=== PATIENT | female | born 1960 | race African-American/Black ===

== ENCOUNTER 2016-07-04 07:29 | Outpatient (CLI) ==
[2016-07-04 07:55] LABS: BASOPHILS # (AUTO) 0.1 K/uL (0-0.2); BASOPHILS % (AUTO) 0.7 % (0.0-3.0); EOSINOPHILS # (AUTO) 0.5 K/ul (0.0-0.7); EOSINOPHILS % (AUTO) 5.8 % (0.0-7.0); HEMATOCRIT 36.7 % (37.0-47.0); HEMOGLOBIN 12.2 g/dl (12.0-16.0); LYMPHOCYTES # (AUTO) 3.3 K/uL (0.60-3.4); LYMPHOCYTES % (AUTO) 34.6 (10.0-50.0); MEAN CORPUSCULAR HEMOGLOBIN 26.2 pg (27.0-31.0); MEAN CORPUSCULAR HGB CONC 33.2 (31.8-35.4); MEAN CORPUSCULAR VOLUME 78.9 fl (81.0-99.0); MONOCYTES # (AUTO) 0.7 K/uL (0.4-2.0); MONOCYTES % (AUTO) 7.8 (0-10); NEUTROPHILS # (AUTO) 4.7 K/ul (2.0-6.9); NEUTROPHILS % (AUTO) 50.1; PLATELET COUNT 361 10^3/uL (140-440); RED BLOOD COUNT 4.65 10^6/ul (4.20-5.40); WHITE BLOOD COUNT 9.38 K/ul (4.6-10.2)
[2016-07-04 08:12] LABS: ALBUMIN 3.7 g/dL (3.4-5.0); ALBUMIN/GLOBULIN RATIO 0.97; ANION GAP 11.9; BILIRUBIN,TOTAL 0.32 mg/dL (0.00-1.20); BUN/CREATININE RATIO 10.97; CALCIUM 9.3 mg/dL (8.2-10.2); CHOL/HDL RATIO 4.9 (4.5-5.5); CREATININE 0.82 mg/dL (0.60-1.30); POTASSIUM 3.9 mmol/L (3.5-5.10); TOTAL PROTEIN 7.5 g/dL (6.4-8.2)
[2016-07-04 10:08] LABS: BILIRUBIN,URINE Negative (NEGATIVE); KETONES,URINE Negative (NEGATIVE); LEUKOCYTE ESTERASE ,URINE Negative (NEGATIVE); NITRITE,URINE Negative (NEGATIVE); PH,URINE 7.5 (5-9); PROTEIN,URINE Negative (NEGATIVE); URINE, BLOOD Negative (NEGATIVE)
[2016-07-04 10:12] LABS: ADD URINE MICROSCOPIC NO
== END 2016-07-04 07:30 | disposition home or self-care (01) ==
LOC: LAB 07:29
PROVIDERS: ATTEND Nurse Practitioner Family
DX: E78.5 Hyperlipidemia, unspecified (principal)
CPT/HCPCS: 36415; 80053; 80061; 81001; 85025

== ENCOUNTER 2016-07-17 10:58 | Outpatient (CLI) ==
--- NOTE | 2016-07-17 11:54 | US ---
EXAM: Thyroid ultrasound History: Enlarged thyroid, difficulty swallowing. Technique: Multiple sonographic images through the thyroid gland were obtained. Color duplex Dopple r was used to interrogate vascular flow. Findings: The right lobe of the thyroid measures 4.0 cm x 1.9 cm x 1.1 cm and is without discrete nodule ident ified. The thyroid isthmus measures 0.3 cm in thickness. The left lobe of the thyroid measures 3.8 cm x 1.2 cm x 1.4 cm and is without discrete nodule identi fied. No extrathyroidal masses identified. The thyroid gland is not hypervascular. Impression: Normal thyroid ultrasound.
== END 2016-07-17 10:59 | disposition home or self-care (01) ==
LOC: RAD 10:58
PROVIDERS: ATTEND Nurse Practitioner Family
DX: E01.0 Iodine-deficiency related diffuse (endemic) goiter (principal)

== ENCOUNTER 2016-07-24 11:43 | Outpatient (CLI) ==
--- NOTE | 2016-07-26 11:41 | MAMMO ---
EXAM: Bilateral digital screening mammogram History: Screening Comparison: Bilateral mammogram 03/22/2015 Findings: MLO and CC views of bilateral breasts demonstrate scattered fibroglandular breast parench yma. There are no dominant masses, no suspicious microcalcifications and no architectural distortio ns Impression: Stable negative mammogram. Recommend followup routine screening mammography in 1 year. BIRADS 1
== END 2016-07-24 11:44 | disposition home or self-care (01) ==
LOC: RAD 11:43
PROVIDERS: ATTEND Nurse Practitioner Family
DX: Z12.31 Encounter for screening mammogram for malignant neoplasm of breast (principal)

== ENCOUNTER 2017-02-25 07:26 | Outpatient (CLI) ==
[2017-02-25 07:38] LABS: BASOPHILS % (AUTO) 0.4 % (0.0-3.0); EOSINOPHILS # (AUTO) 0.3 K/ul (0.0-0.7); EOSINOPHILS % (AUTO) 3.6 % (0.0-7.0); HEMATOCRIT 37.6 % (37.0-47.0); HEMOGLOBIN 12.5 g/dl (12.0-16.0); IMMATURE GRANULOCYTE % (AUTO) 1.1 % (0.0-5.0); LYMPHOCYTES # (AUTO) 2.6 K/uL (0.60-3.4); LYMPHOCYTES % (AUTO) 35.9 (10.0-50.0); MEAN CORPUSCULAR HEMOGLOBIN 26.2 pg (27.0-31.0); MEAN CORPUSCULAR HGB CONC 33.2 (31.8-35.4); MEAN CORPUSCULAR VOLUME 78.8 fl (81.0-99.0); MONOCYTES # (AUTO) 0.7 K/uL (0.4-2.0); MONOCYTES % (AUTO) 9.7 (0-10); NEUTROPHILS # (AUTO) 3.6 K/ul (2.0-6.9); NEUTROPHILS % (AUTO) 49.3; PLATELET COUNT 375 10^3/uL (140-440); RED BLOOD COUNT 4.77 10^6/ul (4.20-5.40); WHITE BLOOD COUNT 7.21 K/ul (4.6-10.2)
[2017-02-25 08:23] LABS: ALBUMIN 3.6 g/dL (3.4-5.0); ALBUMIN/GLOBULIN RATIO 0.95; ANION GAP 15.3; BILIRUBIN,TOTAL 0.28 mg/dL (0.00-1.20); BUN/CREATININE RATIO 13.82; CALCIUM 9.8 mg/dL (8.2-10.2); CREATININE 0.94 mg/dL (0.60-1.30); POTASSIUM 3.3 mmol/L (3.5-5.10); TOTAL PROTEIN 7.4 g/dL (6.4-8.2)
== END 2017-02-25 07:27 | disposition home or self-care (01) ==
LOC: LAB 07:26
PROVIDERS: ATTEND Nurse Practitioner Family
DX: E78.5 Hyperlipidemia, unspecified (principal)
CPT/HCPCS: 36415; 80053; 80061; 84439; 84443; 85025

== ENCOUNTER 2017-02-26 16:10 | Outpatient (CLI) | END 2017-02-26 16:11 | disposition home or self-care (01) | LOC: LAB 16:10 | PROVIDERS: ATTEND Nurse Practitioner Family | DX: R73.09 Other abnormal glucose (principal) | CPT/HCPCS: 36415; 83036 ==

== ENCOUNTER 2017-03-04 15:44 | Inpatient (IN) ==
[2017-03-04] MEDS ORDERED: NORVASC PO STA (16:20)
[2017-03-04 16:41] LABS: BASOPHILS # (AUTO) 0.1 K/uL (0-0.2); BASOPHILS % (AUTO) 0.6 % (0.0-3.0); EOSINOPHILS # (AUTO) 0.2 K/ul (0.0-0.7); EOSINOPHILS % (AUTO) 2.4 % (0.0-7.0); HEMATOCRIT 35.1 % (37.0-47.0); HEMOGLOBIN 11.9 g/dl (12.0-16.0); IMMATURE GRANULOCYTE % (AUTO) 0.9 % (0.0-5.0); LYMPHOCYTES # (AUTO) 2.8 K/uL (0.60-3.4); LYMPHOCYTES % (AUTO) 34.2 (10.0-50.0); MEAN CORPUSCULAR HEMOGLOBIN 26.4 pg (27.0-31.0); MEAN CORPUSCULAR HGB CONC 33.9 (31.8-35.4); MEAN CORPUSCULAR VOLUME 77.8 fl (81.0-99.0); MONOCYTES # (AUTO) 0.6 K/uL (0.4-2.0); MONOCYTES % (AUTO) 7.1 (0-10); NEUTROPHILS # (AUTO) 4.5 K/ul (2.0-6.9); NEUTROPHILS % (AUTO) 54.8; PLATELET COUNT 341 10^3/uL (140-440); RED BLOOD COUNT 4.51 10^6/ul (4.20-5.40); WHITE BLOOD COUNT 8.18 K/ul (4.6-10.2)
[2017-03-04 17:34] LABS: ALANINE AMINOTRANSFERASE 17 U/L (12-78); ALBUMIN 3.8 g/dL (3.4-5.0); ALKALINE PHOSPHATASE 57 U/L (42-98); ANION GAP 10.9; ASPARTATE AMINO TRANSFERASE 23 U/L (15-37); BILIRUBIN,TOTAL 0.37 mg/dL (0.00-1.20); BLOOD UREA NITROGEN 12 mg/dL (7-18); BUN/CREATININE RATIO 15.58; CALCIUM 9.7 mg/dL (8.2-10.2); CARBON DIOXIDE 30 mmol/L (21-32); CHLORIDE 99 mmol/L (98-107); CREATINE KINASE 223 U/L; CREATININE 0.77 mg/dL (0.60-1.30); GLUCOSE 89 mg/dL (70-110); POTASSIUM 2.9 mmol/L (3.5-5.10); SODIUM 137 mmol/L (136-145); TOTAL PROTEIN 7.6 g/dL (6.4-8.2)
[2017-03-04 17:36] LABS: CREATINE KINASE MB 5.8 ng/ml (0.0-3.6)
[2017-03-04] MEDS ORDERED: PROAIR HFA IH PRN (17:48)
[2017-03-04] MEDS ORDERED: POTASSIUM CHLORIDE PREMIX RUN 10 MEQ in PREMIX 100 ML WATER 1 BAG IV STA (17:48)
--- NOTE | 2017-03-04 17:54 | ED.PDOC ---
General ED Provider: Dr. RUBY WILLARD Chief Complaint: Hypertension Stated Complaint: hypertension Time Seen by Physician: 15:45 Mode of Arrival: Walk-In Information Source: Patient Exam Limitations: No limitations [facility] and Triage Documentation Reviewed and Agree: Yes Cardiovascular Complaint Exam - Hypertension Complaint/Exam Onset/Duration: today Symptoms Are: Still present Reported B/P Prior to Arrival: 200/100 Aggravating: Reports: Exertion Alleviating: Reports: Rest Associated Signs and Symptoms: Denies: Chest pain, Vision changes, Anxiety, Recent stress, Headache, Numbness, Tingling, Weakness, Dizziness, Short of air, Swelling Related History: Reports: Similar episode Related Surgical History: Reports: None Cardiac Risk Factors: Reports: Hypertension, Diabetes Recent Change in Medications: Yes A/V Nicking: No Papilledema Present: No JVD Present: No Carotid Bruit Present: No Differential Diagnoses: Hypertensive Urgency Quality Indicator For Non-Traumatic Chest Pain/Syncope: EKG Performed Review of Systems - Review Of Systems Constitutional: Reports: No symptoms Eyes: Reports: No symptoms Ears, Nose, Mouth, Throat: Reports: No symptoms Respiratory: Reports: No symptoms Cardiac: Reports: Chest pain GI: Reports: No symptoms : Reports: No symptoms Musculoskeletal: Reports: No symptoms Skin: Reports: No symptoms Neurological: Reports: No symptoms Endocrine: Reports: No symptoms Hematologic/Lymphatic: Reports: No symptoms All Other Systems: Reviewed and Negative Past Medical History - Past Medical History Previously Healthy: Yes Endocrine: Reports: DM 2 Cardiovascular: Reports: Hypertension Respiratory: Reports: None Hematological: Reports: None Gastrointestinal: Reports: None Genitourinary: Reports: None Neuro/Psych: Reports: None Musculoskeletal: Reports: None Cancer: Reports: None Last Menstrual Period: NONE - Surgical History General Surgical History: Reports: None - Family History Family History: Reports: None - Social History Smoking Status: Never smoker Hx Substance Use: No Alcohol Screening: Occasionally Physical Exam - Physical Exam Appearance: Well-appearing, No pain distress, Well-nourished Eyes: VEENA, EOMI, Conjunctiva clear ENT: Ears normal, Nose normal, Oropharynx normal Respiratory: Airway patent, Breath sounds clear, Breath sounds equal, Respirations nonlabored Cardiovascular: RRR, Pulses normal, No rub, No murmur GI/: Soft, Nontender, No masses, Bowel sounds normal, No Organomegaly Musculoskeletal: Normal strength, ROM intact, No edema, No calf tenderness Skin: Warm, Dry, Normal color Neurological: Sensation intact, Motor intact, Reflexes intact, Cranial nerves intact, Alert, Oriented Psychiatric: Affect appropriate, Mood appropriate Critical Care Note - Critical Care Note Total Time (mins): 0 Course - Course Hematology/Chemistry: 03/04/17 16:38 03/04/17 16:38 Orders, Labs, Meds: Lab Review 03/04/17 03/04/17 16:38 16:38 WBC 8.18 RBC 4.51 Hgb 11.9 L Hct 35.1 L MCV 77.8 L MCH 26.4 L MCHC 33.9 RDW Coeff of Anh 13.4 Plt Count 341 Immature Gran % (Auto) 0.9 Neut % (Auto) 54.8 Lymph % (Auto) 34.2 Vilas % (Auto) 7.1 Eos % (Auto) 2.4 Baso % (Auto) 0.6 Immature Gran # (Auto) 0.1 Neut # 4.5 Lymph # 2.8 Vilas # 0.6 Eos # 0.2 Baso # 0.1 Sodium 137 Potassium 2.9 L Chloride 99 Carbon Dioxide 30 Anion Gap 10.9 BUN 12 Creatinine 0.77 Estimated GFR (MDRD) 94.00 BUN/Creatinine Ratio 15.58 Glucose 89 Calcium 9.7 Total Bilirubin 0.37 AST 23 ALT 17 Alkaline Phosphatase 57 Total Creatine Kinase 223 CK-MB (CK-2) 5.8 H* CK-MB (CK-2) % 2.44605 Troponin I < 0.0100 Total Protein 7.6 Albumin 3.8 Globulin 3.8 Albumin/Globulin Ratio 1.00 Orders Category Date Time Status ADMIT PATIENT INPATIENT .TO [facility] (MONITORED BED) ADMISSION 03/04/17 17: 46 Ordered EKG-(ED ONLY) Stat CARDIO 03/04/17 16:20 Completed EKG-(IP & OP ONLY) DAILY CARDIO 03/05/17 06:00 Ordered EKG-(IP & OP ONLY) DAILY CARDIO 03/06/17 06:00 Ordered EKG-(IP & OP ONLY) DAILY CARDIO 03/07/17 06:00 Ordered ACTIVITY .BR with BRP CARE 03/04/17 17:46 Ordered BLOOD GLUCOSE MONITORING ACCUCHECK Q6H CARE 03/04/17 17:51 Ordered GIVE HS SNACK 2100 CARE 03/04/17 17:51 Ordered INTAKE & OUTPUT Q8HR CARE 03/04/17 17:51 Ordered TELEMETRY MONITORING TELE CARE 03/04/17 17:47 Ordered VITAL SIGNS Q4HR CARE 03/04/17 17:46 Ordered ADA 1800 KAUSHIK. DIET DIETARY 03/04/17 Dinner Ordered HS SNACK DIETARY 03/04/17 Dinner Ordered CBC W/ AUTO DIFF DAILY@0600 LAB 03/05/17 06:00 Ordered CBC W/ AUTO DIFF DAILY@0600 LAB 03/06/17 06:00 Ordered CBC W/ AUTO DIFF Stat LAB 03/04/17 16:38 Completed COMPREHENSIVE METABOLIC PANEL DAILY@0600 LAB 03/05/17 06:00 Ordered COMPREHENSIVE METABOLIC PANEL DAILY@0600 LAB 03/06/17 06:00 Ordered COMPREHENSIVE METABOLIC PANEL Stat LAB 03/04/17 16:38 Completed CREATINE KINASE Q8H LAB 03/04/17 23:47 Ordered CREATINE KINASE Q8H LAB 03/05/17 07:47 Ordered CREATINE KINASE Stat LAB 03/04/17 16:38 Completed TROPONIN I Q8H LAB 03/04/17 23:47 Ordered TROPONIN I Q8H LAB 03/05/17 07:47 Ordered TROPONIN I Stat LAB 03/04/17 16:38 Completed Albuterol Sulfate 0.083% Neb [Albuterol 0.083% Neb] MEDS 03/04/17 18:00 Ordered 2.5 mg NEB Q4-6H Albuterol Sulfate [Proair Hfa] MEDS 03/04/17 17:48 Ordered 1 - 2 puff IH Q4-6H PRN Amlodipine Besylate [Norvasc] MEDS 03/04/17 16:20 Discontinued 5 mg PO ONCE STA Bisoprolol Fumarate [Zebeta] MEDS 03/05/17 09:00 Ordered 5 mg PO DAILY Losartan/Hydrochlorothiazide [Hyzaar 50-12.5 mg Tab] MEDS 03/05/17 09:00 Ordered 1 each PO DAILY Metformin HCl [Glucophage] MEDS 03/04/17 21:00 Ordered 500 mg PO BID Montelukast Sodium [Singulair] MEDS 03/05/17 09:00 Ordered 10 mg PO DAILY Potassium Chloride [Potassium Chloride Premix Run] 10 MEDS 03/04/17 17:48 Ordered meq Premix 100 ml Water 1 bag IV ONCE Potassium Chloride [Potassium Chloride] MEDS 03/04/17 21:00 Ordered 20 meq PO BID Potassium Chloride in 0.9%NaCl [Sodium Chloride 0.9%- MEDS 03/04/17 18:00 Ordered KCl 20 Meq] 1,000 ml IV 75 mls/hr Sodium Chloride 0.9% [Sodium Chloride] 1,000 ml MEDS 03/04/17 18:00 Ordered IV 75 mls/hr Medications Generic Name Dose Route Start Last Admin Trade Name Olvin PRN Reason Stop Dose Admin Albuterol Sulfate vial 03/04/17 18:00 Albuterol 0.083% Neb NEB Q4-6H JAROD Albuterol Sulfate 1 - 2 puff 03/04/17 17:48 Proair Hfa IH Q4-6H PRN Bronchospasm Bisoprolol Fumarate 5 mg 03/05/17 09:00 Zebeta PO DAILY JAROD HCTZ/Losartan Potassium tab 03/05/17 09:00 Hyzaar 50-12.5 Mg Tab PO DAILY JRAOD Sodium Chloride 1,000 mls @ 75 mls/hr 03/04/17 18:00 Sodium Chloride IV .[id number] JAROD Potassium Chloride/Sodium Chloride 1,000 mls @ 75 mls/hr 03/04/17 18:00 Sodium Chloride 0.9%-Kcl 20 Meq IV .[id number] JAROD Potassium Chloride 10 meq/ 100 mls @ 100 mls/hr 03/04/17 17:48 Sterile Water IV 03/04/17 18:47 ONCE STA Metformin HCl 500 mg 03/04/17 21:00 Glucophage PO BID JAROD Montelukast Sodium 10 mg 03/05/17 09:00 Singulair PO DAILY JAROD Non-Formulary Medication 20 meq 03/04/17 21:00 Potassium Chloride [Potassium Chloride] PO BID JAROD Discontinued Medications Generic Name Dose Route Start Last Admin Trade Name Pepeq PRN Reason Stop Dose Admin Amlodipine Besylate 5 mg 03/04/17 16:20 03/04/17 16:29 Norvasc PO 03/04/17 16:21 5 mg ONCE STA Administration Vital Signs: Temp Pulse Resp BP Pulse Ox 03/04/17 15:44 97.8 F 90 18 201/102 H 98 WALE Risk Score WALE Risk Score: Risk Score Odds of by 30D 0 0.1 (0.1-0.2) 1 0.3 (0.2-0.3) 2 0.4 (0.3-0.5) 3 0.7 (0.6-0.9) 4 1.2 (1.0-1.5) 5 2.2 (1.9-2.6) 6 3.0 (2.5-3.6) 7 4.8 (3.8-6.1) Departure - Departure Time of Disposition: 17:53 Disposition: ADMITTED INPATIENT Discharge Problem: Hypokalemia Instructions: Hypertension (ED) Condition: Good Pt referred to PMD for follow-up: Yes Allergies/Adverse Reactions: Allergies No Known Allergies Allergy (Verified 03/04/17 15:51)
[2017-03-04] MEDS ORDERED: SODIUM CHLORIDE 1,000 ML IV SCH (18:00)
[2017-03-04] MEDS ORDERED: ALBUTEROL 0.083% NEB NEB SCH (18:00)
[2017-03-04] MEDS ORDERED: POTASSIUM CHLORIDE PREMIX RUN 100 ML IV ONE (18:23)
[2017-03-04] MEDS: SODIUM CHLORIDE 0.9%-KCL 20 MEQ 1,000 ML IV SCH (18:32)
[2017-03-04] MEDS ORDERED: K-DUR ONE (19:45)
[2017-03-04] MEDS: GLUCOPHAGE PO SCH (20:33)
[2017-03-04] MEDS ORDERED: NON-FORMULARY MEDICATION (Potassium Chloride [Potassium Chloride] 20 MEQ) PO SCH ×22 (21:00)
[2017-03-04 21:09] VITALS: BMI 34.3
[2017-03-04 23:05] LABS: BUN/CREATININE RATIO 12.79; CALCIUM 9.6 mg/dL (8.2-10.2); CREATININE 0.86 mg/dL (0.60-1.30)
[2017-03-04 23:23] LABS: TROPONIN I 0.01 ng/ml (0.0000-0.4000)
[2017-03-04 23:24] LABS: CREATINE KINASE MB 4.6 ng/ml (0.0-3.6)
[2017-03-05] MEDS: SODIUM CHLORIDE 0.9%-KCL 20 MEQ 1,000 ML IV SCH ×2 (07:50→20:08)
[2017-03-05 07:57] LABS: BASOPHILS % (AUTO) 0.6 % (0.0-3.0); EOSINOPHILS # (AUTO) 0.2 K/ul (0.0-0.7); EOSINOPHILS % (AUTO) 3.2 % (0.0-7.0); HEMATOCRIT 33.4 % (37.0-47.0); HEMOGLOBIN 11.4 g/dl (12.0-16.0); IMMATURE GRANULOCYTE % (AUTO) 1.2 % (0.0-5.0); LYMPHOCYTES # (AUTO) 2.1 K/uL (0.60-3.4); LYMPHOCYTES % (AUTO) 31.5 (10.0-50.0); MEAN CORPUSCULAR HEMOGLOBIN 26.9 pg (27.0-31.0); MEAN CORPUSCULAR HGB CONC 34.1 (31.8-35.4); MEAN CORPUSCULAR VOLUME 78.8 fl (81.0-99.0); MONOCYTES # (AUTO) 0.6 K/uL (0.4-2.0); MONOCYTES % (AUTO) 8.2 (0-10); NEUTROPHILS # (AUTO) 3.8 K/ul (2.0-6.9); NEUTROPHILS % (AUTO) 55.3; PLATELET COUNT 343 10^3/uL (140-440); RED BLOOD COUNT 4.24 10^6/ul (4.20-5.40)
[2017-03-05 08:16] LABS: ALBUMIN 3.4 g/dL (3.4-5.0); ANION GAP 11.1; BILIRUBIN,TOTAL 0.21 mg/dL (0.00-1.20); BUN/CREATININE RATIO 14.47; CALCIUM 9.3 mg/dL (8.2-10.2); CREATININE 0.76 mg/dL (0.60-1.30); POTASSIUM 3.1 mmol/L (3.5-5.10); TOTAL PROTEIN 6.8 g/dL (6.4-8.2)
[2017-03-05 08:31] LABS: TROPONIN I 0.014 ng/ml (0.0000-0.4000)
[2017-03-05 08:34] LABS: CREATINE KINASE MB 3.4 ng/ml (0.0-3.6)
[2017-03-05] MEDS ORDERED: HYZAAR 50-12.5 MG TAB PO SCH (09:00)
[2017-03-05] MEDS: ZEBETA PO SCH (09:07)
[2017-03-05] MEDS: K-DUR PO SCH ×2 (09:07→16:55)
[2017-03-05] MEDS: GLUCOPHAGE PO SCH ×2 (09:08→20:08)
[2017-03-05] MEDS: SINGULAIR PO SCH ×2 (09:08)
[2017-03-05] MEDS ORDERED: COZAAR PO SCH (09:30)
[2017-03-05] MEDS ORDERED: SINGULAIR PO PRN (10:19)
--- NOTE | 2017-03-05 14:40 | HP ---
DATE OF SERVICE: 03/04/17 HISTORY OF PRESENT ILLNESS: The patient is a 57-year-old female who went to the emergency room for issues related to high blood pressure. The patient was seen recently at the clinic by Reina Craig, blood pressure was high, patient medications were switched. She came for the followup. She saw Reina today, Mar 04. Blood pressure was 213/100, hands tingly, chest tightness. At that time, Reina suggested patient go to the emergency room for further evaluation. The patient went to the emergency room. Initial blood pressure was 201/102. Labs showed potassium 2.9, CK-MB 5.8. Hemoglobin 11.9. At that time, the patient was given extra dose of her home medication and admitted to the hospital for hypertension, uncontrolled with hypokalemia, elevated CK-MB. REVIEW OF SYSTEMS: CONSTITUTIONAL: Weakness, tiredness. No fever, no chills. HEENT: Normal. ENDOCRINE: No weight gain; no weight loss. CVS: No chest pain. No PND, no orthopnea. No chest tightness but has some shortness of breath. No PND, no orthopnea. RESPIRATORY: No cough, no congestion. No hemoptysis. GI: No nausea, no vomiting. No abdominal pain. No melena. : No hematuria. No polyuria. MUSCULOSKELETAL: No joint swelling. HEATING AND VENTILATION ENGINEER: Hands tingly. Sometimes headache. No blurred vision. PSYCHIATRIC: Not anxious. No depression. No suicidal thoughts. No homicidal thoughts. SKIN: Intact, no open lesions. PAST MEDICAL HISTORY: High blood pressure, uncontrolled Dyslipidemia Leg edema Allergies Osteoarthritis Diabetes mellitus PAST SURGICAL HISTORY: Cyst removed from the ovary Cholecystectomy PERSONAL HISTORY: Does not smoke or drink FAMILY HISTORY: Significant for high blood pressure. MEDICATIONS: (HOME) Cozaar Losartan/HCTZ Albuterol Zebeta Glucophage Singulair Potassium ALLERGIES: NKDA PHYSICAL EXAMINATION: V/S: BP 201/102, respiratory rate 18, heart rate 90, temperature 97.8, saturation 98. HEENT: Atraumatic, normocephalic. No scleral icterus. Pallor positive. Mucosa dry. NECK: Supple. No JVD, no bruit. No lymphadenopathy. No thyromegaly. HEART: S1, S2 normal. Systolic murmur positive. No cyanosis or clubbing. No ascites. LUNGS: Bilateral entry is decreased and clear to auscultation. No rales or rhonchi. ABDOMEN: Soft, nontender. Bowel sounds are active. No CVA tenderness. No rigidity or guarding. EXTREMITIES: No cyanosis, clubbing or pedal edema. MUSCULOSKELETAL: Normal joints, no swelling. NEUROLOGIC: The patient is alert and oriented. SKIN: Intact; no open lesions. LYMPHATIC: No lymph nodes palpable. LABS: White count 8.18, hemoglobin 11.9, hematocrit 35.1, platelet count 341. Sodium 137, potassium 2.9, chloride 99, bicarb 30, BUN 12, creatinine 0.77, glucose 89. CK-MB 5.8. Hemoglobin A1C 6.4. ASSESSMENT: 1. HYPERTENSIVE URGENCY 2. HYPOKALEMIA 3. HISTORY OF ASTHMA, MILD PERSISTENT 4. DIABETES MELLITUS 5. OBESITY PLAN: 1. Admit the patient to the regular floor. 2. CBC, CMP today and daily 3. Cardiac enzymes and troponin 4. Regular diet 5. Accu-Cheks with coverage 6. Resume home medications 7. Replace potassium with IV potassium TIME SPENT: MORE THAN 70 minutes MTDD
--- NOTE | 2017-03-05 14:47 | PN ---
DATE OF SERVICE: 03/05/17 SUBJECTIVE: The patient is admitted with uncontrolled blood pressure. The patient today is feeling somewhat better. Blood pressure has improved 156/89, 147/87. She says it all started when the patient's blood pressure medication was added with water pill for leg edema and ever since potassium has been low. She has been having muscle cramps and feeling weak and tired. REVIEW OF SYSTEMS: CONSTITUTIONAL: No fever, no chills. HEENT: Normal. ENDOCRINE: No weight gain, no weight loss. CVS: No angina symptoms. No CHF symptoms. No palpitations. No atypical chest pain for CAD. No shortness of breath. No PND, no orthopnea. RESPIRATORY: No cough, no hemoptysis. GI: No nausea, no vomiting. No abdominal pain. : No hematuria. No polyuria. MUSCULOSKELETAL:. No joint swelling. PSYCHIATRIC: Not anxious. No depression. No suicidal thoughts. No homicidal thoughts. SKIN: Intact. No rash. PHYSICAL EXAMINATION: V/S: BP 148/90, respiratory rate 16, heart rate 86, temperature 97.4. HEENT: Normocephalic, atraumatic. NECK: Supple. No JVD, no carotid bruit. No lymphadenopathy. LUNGS: Clear to auscultation. No rales or rhonchi. HEART: S1, S2 normal. No S3. Systolic murmur. ABDOMEN: Soft, nontender. Bowel sounds active. No rigidity. No rebound or guarding. No CVA tenderness. EXTREMITIES: No clubbing, cyanosis or pedal edema. MUSCULOSKELETAL: No joint swelling. NEUROLOGIC: Awake, alert, oriented times three. No focal deficit. LYMPHATIC: No lymph nodes palpable. SKIN: Intact. LABS: Potassium 3.1, chloride 102, bicarb 27, BUN 11, creatinine 0.76, glucose 117. Hemoglobin 11.4, hematocrit 33.4, platelet count 343. ASSESSMENT: 1. HYPERTENSIVE URGENCY BETTER 2. HYPOKALEMIA 3. ANEMIA 4. DIABETES MELLITUS 5. DYSLIPIDEMIA 6. OBESITY PLAN: 1. Will continue home medications 2. Stop Losartan/HTCZ 3. Start patient on plain Losartan 4. Continue IV fluids 5. Anemia profile 6. Will follow with the patient in daily rounds TIME SPENT: More than 35 minutes today [facility]
[2017-03-05] MEDS ORDERED: ALBUTEROL 0.083% NEB NEB PRN (17:31)
[2017-03-06 04:25] LABS: BASOPHILS % (AUTO) 0.6 % (0.0-3.0); EOSINOPHILS # (AUTO) 0.3 K/ul (0.0-0.7); EOSINOPHILS % (AUTO) 3.7 % (0.0-7.0); HEMATOCRIT 34.4 % (37.0-47.0); HEMOGLOBIN 11.2 g/dl (12.0-16.0); LYMPHOCYTES # (AUTO) 2.7 K/uL (0.60-3.4); LYMPHOCYTES % (AUTO) 39.2 (10.0-50.0); MEAN CORPUSCULAR HEMOGLOBIN 25.9 pg (27.0-31.0); MEAN CORPUSCULAR HGB CONC 32.6 (31.8-35.4); MEAN CORPUSCULAR VOLUME 79.6 fl (81.0-99.0); MONOCYTES # (AUTO) 0.7 K/uL (0.4-2.0); MONOCYTES % (AUTO) 10.5 (0-10); NEUTROPHILS # (AUTO) 3.1 K/ul (2.0-6.9); PLATELET COUNT 332 10^3/uL (140-440); RED BLOOD COUNT 4.32 10^6/ul (4.20-5.40); WHITE BLOOD COUNT 6.83 K/ul (4.6-10.2)
[2017-03-06 04:50] LABS: ALBUMIN 3.1 g/dL (3.4-5.0); ANION GAP 10.6; BILIRUBIN,TOTAL 0.17 mg/dL (0.00-1.20); BUN/CREATININE RATIO 16.66; CALCIUM 9.1 mg/dL (8.2-10.2); CREATININE 0.78 mg/dL (0.60-1.30); POTASSIUM 3.6 mmol/L (3.5-5.10); TOTAL PROTEIN 6.2 g/dL (6.4-8.2)
[2017-03-06] MEDS ORDERED: ZEBETA PO SCH (08:27)
[2017-03-06] MEDS: K-DUR PO SCH ×2 (09:00→10:15)
[2017-03-06] MEDS: COZAAR PO SCH ×2 (09:01→20:14)
[2017-03-06] MEDS: GLUCOPHAGE PO SCH ×2 (09:02→20:14)
[2017-03-06] MEDS: ZEBETA PO SCH ×2 (09:03→10:15)
[2017-03-07 05:24] LABS: ANION GAP 11.2; BUN/CREATININE RATIO 16.9; CALCIUM 9.9 mg/dL (8.2-10.2); CREATININE 0.71 mg/dL (0.60-1.30); POTASSIUM 3.2 mmol/L (3.5-5.10)
[2017-03-07] MEDS ORDERED: K-DUR PO SCH (08:36)
[2017-03-07] MEDS ORDERED: BENICAR PO SCH (09:00)
[2017-03-07] MEDS: ZEBETA PO SCH (09:34)
[2017-03-07] MEDS: XANAX PO SCH ×2 (09:34→20:17)
[2017-03-07] MEDS: K-DUR PO SCH (09:35)
[2017-03-07] MEDS: GLUCOPHAGE PO SCH ×3 (09:35→16:35)
--- NOTE | 2017-03-07 11:20 | US ---
Exam: Renal arterial duplex rodgers-scale and color Doppler imaging. Comparison: None available. Reason for exam: Hypertension. FINDINGS: The right kidney measures 7.74 cm in length. Peak systolic velocity of the aorta at the l evel of the superior mesenteric artery measures 1.0 meters per second. The IVC is patent. The aorti c diameter measures 1.33 cm. Peak systolic velocity at the level of the right renal ostium measures 1.1 meters per second. The RA/AO ratio was 1.1. Peak systolic velocity in the midportion of the right kidney measures 0.8 meters per second with an R A/AO ratio of 0.8. The arcuate artery peak systolic velocity measures 0.3 meters per second with a resistive index of 0. 70. Peak systolic velocity at the renal hilum measures 0.9 meters per second with an RA/AO ratio of 0.9. The right renal vein is patent. The left kidney measures approximately 10.08 cm in length. Peak systolic velocity at the level of the left renal ostium measures 0.4 meters per second with an R A/AO ratio of 0.4. Peak systolic velocity at the midportion of the left kidney measures 1.3 meters per second with an RA /AO ratio of 1.3. Peak systolic velocity at the level of the left renal hilum measures 0.8 meters per second with an RA /AO ratio of 0.8. Peak systolic velocity at the level of the left arcuate artery measures 0.1 meters per second with a resistive index of 1.0. The left renal vein is patent. Impression: No ultrasonographic evidence is seen to suggest renal artery stenosis.
--- NOTE | 2017-03-07 11:24 | US ---
EXAM: RENAL ULTRASOUND, BILATERAL HISTORY: Hypertension FINDINGS: Ultrasound renal, bilateral. Hicks-scale ultrasound and color Doppler imaging was performe d. The right kidney measures 7.7 x 3.6 x 3.8 centimeters. The left kidney measures 10.0 x 4.7 x 3.9 centimeters. General cortical echogenicity and volume are normal for age. No solid or cystic cortical masses. No hydronephrosis is identified. The visualized urinary bladder was grossly normal. IMPRESSION: Findings within normal limits sonographically.
[2017-03-07] MEDS: CATAPRES PO SCH ×2 (16:34→20:17)
[2017-03-07] MEDS ORDERED: AVAPRO PO SCH (21:00)
[2017-03-08 05:13] VITALS: BP 147/84; TEMP 97.8
[2017-03-08 05:33] LABS: ANION GAP 11.7; BUN/CREATININE RATIO 20.25; CALCIUM 9.3 mg/dL (8.2-10.2); CREATININE 0.79 mg/dL (0.60-1.30); POTASSIUM 3.7 mmol/L (3.5-5.10)
[2017-03-08] MEDS ORDERED: K-DUR PO SCH (08:00)
[2017-03-08] MEDS ORDERED: BENICAR PO SCH (09:00)
--- NOTE | 2017-04-04 14:39 | DS ---
DATE OF SERVICE: 03/08/17 FINAL DIAGNOSIS: 1. HYPERTENSIVE URGENCY 2. ANEMIA OF CHRONIC DISEASE 3. DYSLIPIDEMIA 4. ASTHMA, MILD, PERSISTENT 5. OSTEOARTHRITIS 6. DIABETES MELLITUS 7. CHOLECYSTECTOMY PLAN: 1. Discharge the patient home. 2. New medications: Clonidine 0.1 mg twice a day, Avapro 150 mg p.o. at bedtime, Zebeta 10 mg p.o. daily. 3. Continue home medications of Singular, Metformin, Albuterol. 4. Diet: Cardiac and 1800 ADA diet discussed. 5. Activity as much as tolerated. DISEASE SPECIFIC EDUCATION: About the hypertension, risk of stroke, coronary artery disease was discussed. She verbalized understanding. HOSPITAL COURSE: Cammie Linda who is a 57 year old female was seen initially in the emergency room for the elevated blood pressure, which was 201/102 with some weakness and tingling. She was admitted to the hospital. The patient's potassium was low, which is being replaced from 2.9 to 3.03 to 3.1. The patient takes Losartan with hydrochlorothiazide. We had to stop Losartan and hydrochlorothiazide both together. Benicar was started, but the insurance was not paying, so Avapro 150 was given and Clonidine 0.1 twice a day was started which did help the patient and the blood pressure came down below 150's and the bottom number below 90. The patient was up and about feeling better. At that time the patient was discharged to home on all three different new medications. I explained about the risk of stroke and heart attack and control of the blood pressure. TIME SPENT: MORE THAN 55 MINUTES TODAY MARILEE
--- NOTE | 2017-04-07 10:45 | PN ---
DATE OF SERVICE: 03/06/17 SUBJECTIVE: The patient was admitted with hypertensive urgency and patient's blood pressure is still up and down and the systolic is more than 100. No chest pain or headache, nausea or vomiting. Losartan Hydrochlorothiazide was stopped. REVIEW OF SYSTEMS: CONSTITUTIONAL: No fever, no chills. HEENT: Normal. ENDOCRINE: No weight gain, no weight loss. CVS: No angina symptoms. No CHF symptoms. No palpitations. No atypical chest pain for CAD. No shortness of breath. No PND, no orthopnea. RESPIRATORY: No cough, no hemoptysis. GI: No nausea, no vomiting. No abdominal pain. : No hematuria. No polyuria. MUSCULOSKELETAL:. No joint swelling. PSYCHIATRIC: Not anxious. No depression. No suicidal thoughts. No homicidal thoughts. SKIN: Intact. No rash. PHYSICAL EXAMINATION: V/S: Blood pressure 160/88, and 160/98. HEENT: Normocephalic, atraumatic. Mucosa dry. NECK: Supple. No JVD, no carotid bruit. No lymphadenopathy. LUNGS: Clear to auscultation. No rales or rhonchi. HEART: S1, S2 normal. No S3. No murmur, gallop or regurgitation. ABDOMEN: Soft, nontender. Bowel sounds active. No rigidity. No rebound or guarding. No CVA tenderness. EXTREMITIES: No clubbing, cyanosis or pedal edema. MUSCULOSKELETAL: No joint swelling. NEUROLOGIC: Awake, alert, oriented times three. No focal deficit. LYMPHATIC: No lymph nodes palpable. SKIN: Intact. LABS: White count is 6.80, hemoglobin 11.4, hematocrit 33.4, platelet count is 343, sodium 137, potassium 3.6, chloride 104, bicarb 28, BUN 13, creatinine 0.78. ASSESSMENT: 1. HYPERTENSION UNCONTROLLED 2. HYPOKALEMIA 3. DIABETES 4. DYSLIPIDEMIA 5. ASTHMA, MILD PERSISTENT PLAN: 1. We will increase the Losartan to 50 mg twice a day. 2. Increase Bisoprolol to 10 mg p.o. daily. 3. Will follow up with the patient in daily rounds. Time spent on the patient is more than 35 minutes today. TIME SPENT: More than 30 minutes MTDD
--- NOTE | 2017-04-07 11:26 | PN ---
DATE OF SERVICE: 03/07/17 SUBJECTIVE: The patient was admitted with hypertension uncontrolled and hypokalemia. Potassium is 3.2 today. Hydrochlorothiazide is being stopped. The patient is a little bit upset as the blood pressure is not controlled. She says that ever since the Losartan Hydrochlorothiazide was stopped by the nurse practitioner she has been having the trouble with the blood pressure issues. It keeps going up and then going down. It doesn't really get controlled. REVIEW OF SYSTEMS: CONSTITUTIONAL: No fever, no chills. HEENT: Normal. ENDOCRINE: No weight gain, no weight loss. CVS: No angina symptoms. No CHF symptoms. No palpitations. No atypical chest pain for CAD. No shortness of breath. No PND, no orthopnea. RESPIRATORY: No cough, no hemoptysis. GI: No nausea, no vomiting. No abdominal pain. : No hematuria. No polyuria. MUSCULOSKELETAL:. No joint swelling. PSYCHIATRIC: Not anxious. No depression. No suicidal thoughts. No homicidal thoughts. SKIN: Intact. No rash. PHYSICAL EXAMINATION: V/S: Blood pressure is 172/98 and 174/98. HEENT: Normocephalic, atraumatic. Mucosa dry. Pallor positive. No icterus. NECK: Supple. No JVD, no carotid bruit. No lymphadenopathy. LUNGS: Clear to auscultation. No rales or rhonchi. HEART: S1, S2 normal. No S3. No murmur, gallop or regurgitation. ABDOMEN: Soft, nontender. Bowel sounds active. No rigidity. No rebound or guarding. No CVA tenderness. EXTREMITIES: No clubbing, cyanosis or pedal edema. MUSCULOSKELETAL: No joint swelling. NEUROLOGIC: Awake, alert, oriented times three. No focal deficit. LYMPHATIC: No lymph nodes palpable. SKIN: Intact. LABS: White count is 6.83, hemoglobin 11.2, hematocrit 34.4, platelet count 333 , sodium 136, potassium 3.2, chloride 104, bicarb 24, BUN 12, creatinine 0.71. ASSESSMENT: 1. HYPERTENSION UNCONTROLLED 2. HYPOKALEMIA 3. DIABETES 4. DYSLIPIDEMIA 5. OBESITY PLAN: 1. Stop the Losartan. 2. Start the patient on Benicar 20 mg twice a day. 3. Continue the Bisoprolol 10 mg p.o. daily. 4. Will add Clonidine 0.1 mg p.o. twice daily. 5. Follow up with the patient in daily rounds. Time spent with the patient was more than 35 minutes today. MTDD
== END 2017-03-08 07:53 | disposition home or self-care (01) | DRG 305 ==
LOC: ED 15:44 → MEDSURG A 17:57
PROVIDERS: ADMIT Emergency Medicine; ATTEND Emergency Medicine
DX: I16.0 Hypertensive urgency (principal); E87.6 Hypokalemia; I10 Essential (primary) hypertension; E11.9 Type 2 diabetes mellitus without complications; R06.02 Shortness of breath; D50.0 Iron deficiency anemia secondary to blood loss (chronic); E78.5 Hyperlipidemia, unspecified; J45.30 Mild persistent asthma, uncomplicated; M19.90 Unspecified osteoarthritis, unspecified site; E66.9 Obesity, unspecified; Z90.49 Acquired absence of other specified parts of digestive tract; Z79.84 Long term (current) use of oral hypoglycemic drugs; Z79.899 Other long term (current) drug therapy
CPT/HCPCS: 36415; 76770; 80048; 80053; 82550; 82553; 82962; 84484; 85025; 93005; 93010; 97802; 99284

== ENCOUNTER 2017-05-25 21:58 | Inpatient (IN) ==
[2017-05-25] MEDS ORDERED: PROCARDIA XL PO STA (22:47)
[2017-05-26] MEDS ORDERED: APRESOLINE PO STA (00:18)
[2017-05-26] MEDS ORDERED: ZANTAC PO STA (00:27)
[2017-05-26] MEDS ORDERED: NITROSTAT SL STA (00:29)
--- NOTE | 2017-05-26 00:35 | ED.PDOC ---
General ED Provider: Dr. JATIN SU-ER Chief Complaint: Hypertension Stated Complaint: my bp is up Time Seen by Physician: 00:37 Mode of Arrival: Walk-In Information Source: Patient Exam Limitations: No limitations [facility] Nursing and Triage Documentation Reviewed and Agree: Yes Reviewed sepsis parameters & appropriate labs ordered?: Yes System Inflammatory Response Syndrome: Not Applicable Sepsis Protocol: For patient's 13 years and over: Temp is 96.8 and below OR 101 and greater Pulse >90 BPM Resp >20/minute Acutely Altered Mental Status Are patient's symptoms suggestive of a new infection, such as: -Pneumonia -Skin, Soft Tissue -Endocarditis -UTI -Bone, Joint Infection -Implantable Device -Acute Abdominal Infection -Wound Infection -Meningitis -Blood Stream Catheter Infection -Unknown Cardiovascular Complaint Exam - Chest Pain Complaint/Exam Onset: Gradual Duration: several hours Symptoms Are: Still present Timing: Constant Initial Severity: Mild Current Severity: Moderate Character: Reports: Dull, Aching Aggravating: Reports: None Alleviating: Reports: None Associated Signs and Symptoms: Denies: Diaphoresis, Nausea, Vomiting, Fever, Palpitations, Cough, Hemoptysis, Back pain, Abdominal pain, Dizziness, Short of air, Calf pain, Calf swelling Prior Care for this Complaint: No Recent Stress Test: No Recent Echo/LV Function: No JVD Present: No Subcutaneous Emphysema Present: No Diminshed Breath Sounds: No Reproducible Chest Wall Pain: No Bilateral Pulses Present: Yes Unequal Pulses Noted: No If Risk Factors for PE Consider: Chest CT with contrast Quality Indicator For Non-Traumatic Chest Pain/Syncope: EKG Performed Review of Systems - Review Of Systems Constitutional: Reports: No symptoms Eyes: Reports: No symptoms Ears, Nose, Mouth, Throat: Reports: No symptoms Respiratory: Reports: No symptoms Cardiac: Reports: Chest pain GI: Reports: No symptoms : Reports: No symptoms Musculoskeletal: Reports: No symptoms Skin: Reports: No symptoms Neurological: Reports: No symptoms Endocrine: Reports: No symptoms Hematologic/Lymphatic: Reports: No symptoms All Other Systems: Reviewed and Negative Past Medical History - Past Medical History Previously Healthy: Yes Endocrine: Reports: DM 2 Cardiovascular: Reports: Hypertension Respiratory: Reports: None Hematological: Reports: None Gastrointestinal: Reports: None Genitourinary: Reports: None Neuro/Psych: Reports: None Musculoskeletal: Reports: None Cancer: Reports: None Last Menstrual Period: 1 month - is irregular - Surgical History General Surgical History: Reports: None - Family History Family History: Reports: None - Social History Smoking Status: Never smoker Hx Substance Use: No Alcohol Screening: Occasionally Lives: With family - Immunizations Tetanus Shot up to Date: Yes Physical Exam - Physical Exam Appearance: Well-appearing, No pain distress, Well-nourished Eyes: VEENA, EOMI, Conjunctiva clear ENT: Ears normal, Nose normal, Oropharynx normal Neck: Supple Respiratory: Airway patent, Breath sounds clear, Breath sounds equal, Respirations nonlabored Cardiovascular: RRR, Pulses normal, No rub, No murmur GI/: Soft, Nontender, No masses, Bowel sounds normal, No Organomegaly Musculoskeletal: Normal strength, ROM intact, No edema, No calf tenderness Skin: Warm Neurological: Sensation intact, Motor intact, Reflexes intact, Cranial nerves intact, Alert, Oriented Psychiatric: Affect appropriate, Mood appropriate Interpretation - Radiology Interpretation Radiology Interpretation By: Radiologist Radiology Results: Negative Exam Interpreted: CT Scan - EKG Interpretation Time of EKG #1: 02:05 Rate: Normal Rhythm: Sinus Ectopy: None [place]: NL ST Segment: Normal Interpretation: nsr Re-Evaluation - Re-Evaluation Time of Re-Evaluation: 02:05 Status: Improved (no chest pain) Vital Signs Stable: Yes Pain Level: 0 Appearance: NAD Lungs: Clear Skin: Warm and Dry Neuro: Alert and Oriented X3 CV: RRR Physician Notification - Case Discussed Physician Notified: dr horan Time of Notification: 02:06 Critical Care Note - Critical Care Note Total Time (mins): 0 Course - Course Hematology/Chemistry: 05/25/17 22:55 05/25/17 22:55 Orders, Labs, Meds: Lab Review 05/25/17 05/25/17 05/25/17 22:35 22:55 22:55 WBC 6.86 RBC 4.78 Hgb 12.4 Hct 37.1 MCV 77.6 L MCH 25.9 L MCHC 33.4 RDW Coeff of Anh 13.5 Plt Count 336 Immature Gran % (Auto) 0.3 Neut % (Auto) 44.3 Lymph % (Auto) 44.2 [place] % (Auto) 7.7 Eos % (Auto) 3.1 Baso % (Auto) 0.4 Immature Gran # (Auto) 0.0 Neut # 3.0 Lymph # 3.0 [place] # 0.5 Eos # 0.2 Baso # 0.0 Sodium 140 Potassium 3.3 L Chloride 104 Carbon Dioxide 26 Anion Gap 13.3 BUN 11 Creatinine 0.79 Estimated GFR (MDRD) 92.00 BUN/Creatinine Ratio 13.92 Glucose 149 H Calcium 9.7 Total Bilirubin 0.3 AST 18 ALT 16 Alkaline Phosphatase 64 Total Creatine Kinase 134 CK-MB (CK-2) 3.2 CK-MB (CK-2) % [id number] Troponin I < 0.0100 Total Protein 7.7 Albumin 3.7 Globulin 4.0 Albumin/Globulin Ratio 0.93 Urine Color Yellow Urine Clarity Clear Urine pH 7.5 Ur Specific [place] 1.020 Urine Protein 2+ Urine Glucose (UA) Negative Urine Ketones Negative Urine Blood Trace-intact Urine Nitrite Negative Urine Bilirubin Negative Urine Urobilinogen 0.2 Ur Leukocyte Esterase Negative Urine Microscopic RBC 0-2 Ur Squamous Epith Cells 2-5 Amorphous Sediment Trace Urine Bacteria Trace Orders Category Date Time Status EKG-(ED ONLY) Stat CARDIO 05/25/17 22:46 Completed NPO REMINDER: IMAGING ONCE CARE 05/26/17 00:[address] [ED DIGITAL OPERATIONS ANALYST APPLIED] .ONCE EMERGENCY 05/25/17 22:47 Active IV [ED IV/MEDIPORT/POWERPORT] .ONCE EMERGENCY 05/26/17 00:40 Active CBC W/ AUTO DIFF Stat LAB 05/25/17 22:55 Completed COMPREHENSIVE METABOLIC PANEL Stat LAB 05/25/17 22:55 Completed CREATINE KINASE Stat LAB 05/25/17 22:55 Completed TROPONIN I Stat LAB 05/25/17 22:55 Completed URINALYSIS C & S IF INDICATED Stat LAB 05/25/17 22:35 Completed 0.9 % Sodium Chloride [Saline Flush] MEDS 05/26/17 00:40 Ordered 1 syr IVF PRN PRN Hydralazine HCl [Apresoline] MEDS 05/26/17 00:18 Discontinued 50 mg PO ONCE STA Nifedipine [Procardia Xl] MEDS 05/25/17 22:47 Discontinued 60 mg PO ONCE STA Nitroglycerin [Nitrostat] MEDS 05/26/17 00:29 Discontinued 0.4 mg SL ONCE STA Ranitidine HCl [Zantac] MEDS 05/26/17 00:27 Discontinued 150 mg PO ONCE STA CT CHEST PE PROTOCOL Stat RADS 05/26/17 00:38 Completed Medications Generic Name Dose Route Start Last Admin Trade Name Olvin PRN Reason Stop Dose Admin Sodium Chloride 1 syr 05/26/17 00:40 Saline Flush IVF PRN PRN To flush IV Discontinued Medications Generic Name Dose Route Start Last Admin Trade Name Olvin PRN Reason Stop Dose Admin Hydralazine HCl 50 mg 05/26/17 00:18 05/26/17 00:23 Apresoline PO 05/26/17 00:19 50 mg ONCE STA Administration Nifedipine 60 mg 05/25/17 22:47 05/25/17 22:52 Procardia Xl PO 05/25/17 22:48 60 mg ONCE STA Administration Nitroglycerin 0.4 mg 05/26/17 00:29 05/26/17 00:35 Nitrostat SL 05/26/17 00:30 0.4 mg ONCE STA Administration Ranitidine HCl 150 mg 05/26/17 00:27 05/26/17 00:34 Zantac PO 05/26/17 00:28 150 mg ONCE STA Administration Vital Signs: Temp Pulse Resp BP Pulse Ox 05/25/17 21:58 99.7 F H 81 20 215/135 H 98 WALE Risk Score WALE Risk Score: Risk Score Odds of by 30D 0 0.1 (0.1-0.2) 1 0.3 (0.2-0.3) 2 0.4 (0.3-0.5) 3 0.7 (0.6-0.9) 4 1.2 (1.0-1.5) 5 2.2 (1.9-2.6) 6 3.0 (2.5-3.6) 7 4.8 (3.8-6.1) Departure - Departure Time of Disposition: 02:06 Disposition: HOME SELF-CARE Discharge Problem: Accelerated hypertension Chest pain Qualifiers: Chest pain type: other chest pain Qualified Code(s): R07.89 - Other chest pain Instructions: Chronic Hypertension (ED) Condition: Good Pt referred to PMD for follow-up: No IPMP verified?: No Allergies/Adverse Reactions: Allergies No Known Allergies Allergy (Verified 05/25/17 22:32) Home Medications: Ambulatory Orders [place]-3 Fatty Acids/Fish Oil [Fish Oil 1,000 mg Capsule] 1 cap PO DAILY Aspirin [Aspirin EC] 81 mg PO DAILY 05/26/17 Ranitidine HCl [Zantac] 150 mg PO DAILY PRN 05/26/17 Disposition Discussed With: Patient, Family
--- NOTE | 2017-05-26 01:54 | CT ---
Exam: CT angiography of the chest History: Chest pain Technique: [address] of the chest following intravenous contrast utilizing CT angiography protocol per multiplanar and three-dimensional reformations were performed. FINDINGS: Technically adequate for evaluation of pulmonary arteries and aorta. There are no pulmona ry artery filling defects. The lung windows show no pulmonary parenchymal abnormalities. The aorta is normal. No pathologic lymph node enlargement or abundance. No abnormalities of the chest wall so ft tissues or bony thorax. No acute findings of the upper abdomen. Impression: 1. No evidence of pulmonary artery thrombus. No abnormalities of the chest.
[2017-05-26] MEDS ORDERED: ZANTAC PO PRN (02:19)
[2017-05-26] MEDS ORDERED: NITROSTAT SL PRN (02:24)
[2017-05-26] MEDS ORDERED: VASOTEC IV IVP PRN (02:27)
[2017-05-26] MEDS ORDERED: ALBUTEROL 0.083% NEB NEB SCH (02:30)
[2017-05-26 04:25] VITALS: BMI 33.7
[2017-05-26] MEDS ORDERED: APRESOLINE PO SCH ×2 (09:00→10:01)
[2017-05-26] MEDS ORDERED: [UNRECOGNIZED DRUG - REMARK] NS SCH (09:00)
[2017-05-26] MEDS ORDERED: NON-FORMULARY MEDICATION (Potassium Chloride [Potassium Chloride] 20 MEQ) PO SCH (09:00)
[2017-05-26] MEDS ORDERED: CATAPRES PO SCH (09:00)
[2017-05-26] MEDS ORDERED: FENOFIBRATE NANOCRYSTALLIZED 54 MG PO SCH (09:00)
[2017-05-26] MEDS ORDERED: BISOPROLOL FUMARATE 10 MG PO SCH (09:00)
[2017-05-26] MEDS ORDERED: NON-FORMULARY MEDICATION (Clonidine Hcl [Clonidine Hcl] 0.2 MG) BLADDER SCH (09:00)
[2017-05-26] MEDS ORDERED: ALBUTEROL 0.083% NEB NEB PRN (09:49)
[2017-05-26] MEDS ORDERED: CATAPRES PO STA (10:17)
[2017-05-26] MEDS: FLONASE NAS SCH (10:27)
[2017-05-26] MEDS: ASPIRIN EC PO SCH (10:30)
[2017-05-26] MEDS: APRESOLINE PO SCH ×2 (10:30→20:49)
[2017-05-26] MEDS: K-DUR PO SCH ×2 (10:31→20:49)
[2017-05-26] MEDS: LOVENOX SUBCUT SCH (10:32)
[2017-05-26] MEDS: TRIGLIDE PO SCH (10:33)
[2017-05-26] MEDS: ZEBETA PO SCH (10:34)
[2017-05-26] MEDS: HUMULIN R SUBCUT PRN ×2 (11:40→21:10)
--- NOTE | 2017-05-26 13:33 | PCM.CONS ---
CONSULTING PROVIDER: Dr. MAMADOU AHUJA ATTENDING PROVIDER: Dr. Olya PEREZ DATE OF SERVICE: 05/26/17 SUBJECTIVE: This 57 year old BLACK/ F was hospitalized 05/26/17. The patient is seen by Elba Victoria APRN. The patient is lying in bed, alert. She has been experiencing chest tightness and heaviness with elevation of blood pressure for the past few days not necessarily associated with physical exertion. The patient is somewhat relieved now blood perssure is within normal limits. The patient has never had a heart catheterization but reports she had a stress test years ago. REVIEW OF SYSTEMS: CONSTITUTIONAL: No night sweats. No fatigue, malaise, lethargy. No fever or chills. HEENT: Eyes: No visual changes. No eye pain. No eye discharge. ENT: No runny nose. No epistaxis. No sinus pain. No odynophagia. No congestion. RESPIRATORY: No cough, no congestion. No hemoptysis. No shortness of breath. CARDIOVASCULAR: No angina symptoms. No CHF symptoms. Mild chest pain. No palpitations. No orthopnea. GASTROINTESTINAL: Acid reflux. No abdominal pain. No nausea or vomiting. No diarrhea or constipation. No hematemesis. No hematochezia. GENITOURINARY: No urgency. No frequency. No dysuria. No hematuria. No obstructive symptoms. No discharge. No pain. No significant abnormal bleeding. MUSCULOSKELETAL: No musculoskeletal pain; no joint swelling. NEUROLOGICAL: Positive for headache. Awake, alert, oriented to time, place and person. . No neck pain. No syncope. No seizures. No dizziness. PSYCHIATRIC: Not anxious. No depression. No suicidal thoughts. No homicidal thoughts. SKIN: No rash. No lesions. No wounds. ENDOCRINE: No unexplained weight loss. No weight gain. HEMATOLOGIC/LYMPHATIC: No anemia. No purpura. No petechiae. No prolonged or excessive bleeding. No palpable lymph nodes. PHYSICAL EXAMINATION: GENERAL: The patient is awake, alert and oriented, lying in bed in no distress. VITAL SIGNS: Temperature 98.0 F, Pulse 93, Respiratory Rate 18, BP 117/62, Pulse Ox 98% HEENT: Head normocephalic, atraumatic. Eyes: Extraocular muscles are intact. Pupils are equal, round and reactive to light and accommodation. Ears: No lesions. Nose appeared normal. Throat: No exudate or erythema. NECK: Supple. No JVD, no carotid bruit. No lymphadenopathy or thyromegaly. LUNGS: Clear to auscultation. Percussion note normal. Chest symmetrical. HEART: S1, S2, no S3. No murmurs. No cyanosis or clubbing. No ascites. Pulses: Dorsalis pedis and posterior tibial pulses +1 to +2 both sides. ABDOMEN: Soft. Non-tender. Bowel sounds active. No CVA tenderness. No mass felt. EXTREMITIES: No edema. Full range of motion of all extremities, equal. NEUROLOGIC: No focal deficit. Cranial nerves II through XII are grossly intact. No headache, no double vision or headache. SKIN: Warm and dry. Intact. Turgor-normal. LYMPHATIC: No palpable lymph nodes/no lymphedema. MUSCULOSKELETAL: Normal joints with no swelling. Muscle tone is normal. ASSESSMENT: 1. CHEST PAIN 2. HYPERTENSION 3. OBESITY 4. GERD 5. DM TYPE 2 RECOMMENDATIONS/PLAN: 1. T4, TSH 2. Lipids 3. A1C 4. Echo 5. Potassium 20 mEq t.i.d. today Plan and coordination of the patient's care discussed in the presence of Data Entry Assistant and Nurse. CONDITION: Stable SCRIBED BY: MAG DESHPANDE Awning Assembler scribed while in presence of service performed by Dr. MAMADOU AHUJA/ELBA VICTORIA APRN on 05/26/17 ([id number])
[2017-05-26] MEDS: CATAPRES PO SCH ×2 (14:50→20:50)
[2017-05-26] MEDS ORDERED: K-DUR PO ONE (15:00)
[2017-05-26] MEDS ORDERED: AVAPRO PO SCH (21:00)
[2017-05-27] MEDS: LIBRIUM PO SCH ×2 (09:22→20:16)
[2017-05-27] MEDS: K-DUR PO SCH ×2 (09:22→20:15)
[2017-05-27] MEDS: TRIGLIDE PO SCH (09:23)
[2017-05-27] MEDS: CATAPRES PO SCH ×3 (09:23→20:15)
[2017-05-27] MEDS: ASPIRIN EC PO SCH (09:24)
[2017-05-27] MEDS: APRESOLINE PO SCH ×2 (09:24→20:16)
[2017-05-27] MEDS: FLONASE NAS SCH (09:24)
[2017-05-27] MEDS: ZEBETA PO SCH (09:24)
[2017-05-27] MEDS: LOVENOX SUBCUT SCH (09:25)
--- NOTE | 2017-05-27 10:26 | STRESSECHO ---
Date of Test: 05/27/17 Reason for Exam: CHEST PAIN, HYPERTENSION, DM, DYSLIPIDEMIA Ordering Physician: DR. JOHNNIE PEREZ Current Medications: PROCARDIA, APRESOLINE, ZANTAC, NITROSTAT, HUMULIN R, VASOTEC, BISOPROLOL, CLONIDINE, LOVENOX, APRESOLINE, CATAPRES, FLONASE, FENOFIBRATE, ZEBETA, AVAPRO Physical Findings: S1, S2, GRADE I/ SYSTOLIC EJECTION MURMUR Resting EKG: SINUS RHYTHM/ NO ACUTE CHANGES Target Heart Rate: 140/165 STAGE MPH/GRADE HEART RATE BPM BLOOD PRESSURE mmhg RHYTHM S-T SEGMENT +/- UP DOWN SYMPTOMS,COMMENTS At Rest 80 128/96 SR X NONE 1 1.7/10% 220/100 SR X NONE 2 2.5/12% 3 3.4/14% 4 4.2/16% 5 5.0/18% Immediately after 164 220/110 SR X FATIGUE Durations of Exercise: 2:24 Maximum Heart Rate Reached: 164 Reason for Termination: FATIGUE 5 MINUTES POST EXERCISE: HR 102 BPM, BP 190/82 MMHG, SR, +/-, NO COMMENTS INTERPRETATION: 98% OXYGEN SATURATION WITH EXERCISE ON ROOM AIR 1. TEST NEGATIVE FOR ISCHEMIC ST-T WAVE CHANGES 2. NO CHEST PAIN OR CHEST DISCOMFORT 3. BLOOD PRESSURE RESPONSE: HYPERTENSION WITH EXERCISE 4. NO ARRHYTHMIAS LEFT VENTRICULAR CONTRACTILITY NORMAL AT REST AND POST EXERCISE BY ECHO MTDD
--- NOTE | 2017-05-27 10:28 | ECHOSTRESS ---
Date of Exam: 05/27/17 Ordering Physician: DR. JOHNNIE PEREZ Reason for Echo: CHEST PAIN, HYPERTENSION, DM, DYSLIPIDEMIA, STRESS TEST--NO ISCHEMIA M-Mode Normal Adult Results LV Dimensions Normal Adult Results AoV Opening excursions >1.6 LVEDD-base- 3.5-5.8 Ao root dimensions 2.0-3.7 LVESD-base- 3.1-4.6 L. Atrium dimensions 1.9-3.8 Post. Wall thickness 0.8-1.1 IV septum (thickness) 0.7-1.2 Post. Wall excursion 0.72-1.3 Septal motion Systolic motion R. Ventricular cavity 1.5-2.0 LVEF 60% Paradoxical septal wall motion 2-D: NORMAL LEFT VENTRICULAR CONTRACTILITY--RESTING AND POST EXERCISE M-MODE: MV: AV: TV: PV: CHAMBER SIZE: WALL MOTION: NORMAL LEFT VENTRICULAR CONTRACTILITY--RESTING AND POST EXERCISE PERICARDIUM: INTERPRETATION: 1. NORMAL LEFT VENTRICULAR CONTRACTILITY--RESTING AND POST EXERCISE MTDD
--- NOTE | 2017-05-27 10:35 | ECHO2D ---
Date of Exam: 05/27/17 Ordering Physician: CHRIS AGUILAR Room #: SCU1 Reason for Echo: CHEST PAIN, DM2, HYPERTENSION, DYSLIPIDEMIA M-Mode Normal Adult Results LV Dimensions Normal Adult Results AoV Opening excursions >1.6 >1.6 LVEDD-base- 3.5-5.8 4.3 Ao root dimensions 2.0-3.7 2.4 LVESD-base- 3.1-4.6 L. Atrium dimensions 1.9-3.8 4.2 Post. Wall thickness 0.8-1.1 1.2 IV septum (thickness) 0.7-1.2 1.2 Post. Wall excursion 0.72-1.3 NORMAL Septal motion NORMAL Systolic motion R. Ventricular cavity 1.5-2.0 NORMAL LVEF 60% 57% Paradoxical septal wall motion NORMAL 2-D : 2-D M Mode Echocardiogram was performed using apical four chamber and left parasternal long and short axis views. Mitral, tricuspid and aortic valves appear to be normal. Contractility of the left ventricle seems to be normal, so is the cavity size. Left atrial cavity size enlarged. Aortic root appears to be normal. There is no pericardial effusion. There is no thrombus noted in the left ventricular or left aortic cavity. No mitral valve prolapse noted. M-MODE: MV: NORMAL AV: NORMAL TV: NORMAL PV: CHAMBER SIZE: ENLARGEMENT OF LEFT ATRIAL CAVITY WALL MOTION: NORMAL PERICARDIUM: NORMAL INTERPRETATION: 1. BORDERLINE LEFT VENTRICULAR HYPERTROPHY.ENLARGED LACAVITY 2. NORMAL LEFT VENTRICULAR CONTRACTILITY 3. NORMAL VALVES MTDD
[2017-05-27] MEDS: AVAPRO PO SCH (20:16)
[2017-05-27] MEDS: PRAVACHOL PO SCH (20:16)
[2017-05-28] MEDS: APRESOLINE PO SCH ×2 (09:06→21:01)
[2017-05-28] MEDS: CATAPRES PO SCH ×2 (09:06→21:01)
[2017-05-28] MEDS: FLONASE NAS SCH (09:07)
[2017-05-28] MEDS: ASPIRIN EC PO SCH (09:07)
[2017-05-28] MEDS: TRIGLIDE PO SCH (09:08)
[2017-05-28] MEDS: K-DUR PO SCH ×2 (09:08→21:01)
[2017-05-28] MEDS: LOVENOX SUBCUT SCH (09:09)
[2017-05-28] MEDS: ZEBETA PO SCH (09:09)
[2017-05-28] MEDS: LIBRIUM PO SCH ×2 (09:13→21:00)
--- NOTE | 2017-05-28 09:39 | PCM.CONS ---
CONSULTING PROVIDER: Dr. MAMADOU AHUJA ATTENDING PROVIDER: Dr. BRITTANY [facility] DATE OF SERVICE: 05/28/17 SUBJECTIVE: This 57 year old BLACK/ F was hospitalized 05/26/17. Hypertension and chest pain. Cardiac workup is negative. REVIEW OF SYSTEMS: CONSTITUTIONAL: No night sweats. No fatigue, malaise, lethargy. No fever or chills. HEENT: Eyes: No visual changes. No eye pain. No eye discharge. ENT: No runny nose. No epistaxis. No sinus pain. No odynophagia. No congestion. RESPIRATORY: No cough, no congestion. No hemoptysis. No shortness of breath. CARDIOVASCULAR: No angina symptoms. No CHF symptoms. No atypical chest pain for CAD. No palpitations. No orthopnea. GASTROINTESTINAL: No abdominal pain. No nausea or vomiting. No diarrhea or constipation. No hematemesis. No hematochezia. GENITOURINARY: No urgency. No frequency. No dysuria. No hematuria. No obstructive symptoms. No discharge. No pain. No significant abnormal bleeding. MUSCULOSKELETAL: No musculoskeletal pain; no joint swelling. NEUROLOGICAL: Awake, alert, oriented to time, place and person. No headache. No neck pain. No syncope. No seizures. No dizziness. PSYCHIATRIC: Not anxious. No depression. No suicidal thoughts. No homicidal thoughts. SKIN: No rash. No lesions. No wounds. ENDOCRINE: No unexplained weight loss. No weight gain. HEMATOLOGIC/LYMPHATIC: No anemia. No purpura. No petechiae. No prolonged or excessive bleeding. No palpable lymph nodes. PHYSICAL EXAMINATION: GENERAL: The patient is awake, alert and oriented to time, place and person, sitting in bed in no distress. VITAL SIGNS: Temperature 97.4 F, Pulse 73, Respiratory Rate 16, BP 164/96, Pulse Ox 98% HEENT: Head normocephalic, atraumatic. Eyes: Extraocular muscles are intact. Pupils are equal, round and reactive to light and accommodation. Ears: No lesions. Nose appeared normal. Throat: No exudate or erythema. NECK: Supple. No JVD, no carotid bruit. No lymphadenopathy or thyromegaly. LUNGS: Clear to auscultation. Percussion note normal. Chest symmetrical. HEART: S1, S2, no S3. No murmurs. No cyanosis or clubbing. No ascites. Pulses: Dorsalis pedis and posterior tibial pulses +1 to +2 both sides. ABDOMEN: Soft. Non-tender. Bowel sounds active. No CVA tenderness. No mass felt. EXTREMITIES: No edema. Full range of motion of all extremities, equal. NEUROLOGIC: No focal deficit. Cranial nerves II through XII are grossly intact. No headache, no double vision or headache. SKIN: Warm and dry. Intact. Turgor-normal. LYMPHATIC: No palpable lymph nodes/no lymphedema. MUSCULOSKELETAL: Normal joints with no swelling. Muscle tone is normal. LAB REVIEW: 05/27/17 05:05 05/27/17 05:05 ASSESSMENT: Hypertension, labile Dyslipidemia Diabetes Mellitus BMI 34 Please see below. RECOMMENDATIONS/PLAN: Antihypertensive medication as been given Zebeta, Clonidine and ARB Aspirin a day Stress echo negative for ischemia Echo mild LVH Risk for coronary artery disease discussed patient is high risk for cardiovascular and neurological event this was discussed with attending. Plan and coordination of the patient's care discussed in the presence of Youth Leader and Nurse. CONDITION: Stable SCRIBED BY: Pollo WHITE scribed while in presence of service performed by Dr. MAMADOU AHUJA on 05/28/17 ([id number])
[2017-05-28] MEDS: AVAPRO PO SCH (21:01)
[2017-05-28] MEDS: PRAVACHOL PO SCH (21:01)
[2017-05-29] MEDS: ASPIRIN EC PO SCH (08:29)
[2017-05-29] MEDS: APRESOLINE PO SCH ×2 (08:30→21:20)
[2017-05-29] MEDS: CATAPRES PO SCH ×2 (08:30→21:20)
[2017-05-29] MEDS: FLONASE NAS SCH (08:31)
[2017-05-29] MEDS: K-DUR PO SCH ×2 (08:31→21:20)
[2017-05-29] MEDS: TRIGLIDE PO SCH (08:31)
[2017-05-29] MEDS: LOVENOX SUBCUT SCH (08:33)
[2017-05-29] MEDS: LIBRIUM PO SCH ×2 (08:33→21:20)
--- NOTE | 2017-05-29 10:53 | CT ---
EXAM: CT ABDOMEN AND PELVIS HISTORY: Abdominal pain TECHNIQUE: CT abdomen and pelvis without intravenous contrast. Images were reconstructed using 5 mm section thickness. Reformations were prepared. COMPARISON: None FINDINGS: Diagnostic limitations exist without including contrast enhanced images. No focal hepatic or splenic lesion identified. Gallbladder, pancreas and adrenal glands appear normal. Kidneys and ureters james ear normal. Mild atherosclerotic disease. Stomach grossly within normal limits. The appendix is seen and has no evidence of inflammation. [place] el gas pattern is within normal limits. Uterus is prominent in size. There are partially calcified fatty masses of the left ovary suggesting dermoids. Urinary bladder within normal limits. No ascite s or inflammatory infiltration of the abdominal fat. No ventral abdominal wall hernia. The bones reveal facet arthropathy of the lower spine. Lung bases are clear and there is no evidence of pneumoperitoneum. IMPRESSION: 1. No etiology for the patient's abdominal pain was found. No acute intra-abdominal or pelvic abnor mality. 2. Enlarged left ovary with several small partially calcified fatty masses suggesting dermoids. Enl arged lobulated uterus suggesting fibroid involvement.
[2017-05-29] MEDS ORDERED: GLUCOPHAGE PO SCH (11:30)
[2017-05-29] MEDS: HUMULIN R SUBCUT PRN ×2 (11:40→21:38)
[2017-05-29] MEDS ORDERED: ZEBETA PO SCH (12:00)
[2017-05-29] MEDS ORDERED: APRESOLINE PO STA (15:03)
[2017-05-29] MEDS ORDERED: TORADOL IVP STA (16:54)
[2017-05-29] MEDS: GLUCOPHAGE PO SCH (17:13)
[2017-05-29] MEDS ORDERED: LIBRIUM PO SCH (21:00)
[2017-05-29] MEDS: PRAVACHOL PO SCH (21:19)
[2017-05-29] MEDS: AVAPRO PO SCH (21:20)
[2017-05-30 05:59] VITALS: TEMP 98.4
[2017-05-30] MEDS: FLONASE NAS SCH (09:29)
[2017-05-30] MEDS: APRESOLINE PO SCH (09:29)
[2017-05-30] MEDS: GLUCOPHAGE PO SCH (09:30)
[2017-05-30] MEDS: CATAPRES PO SCH (09:30)
[2017-05-30] MEDS: LIBRIUM PO SCH (09:30)
[2017-05-30] MEDS: K-DUR PO SCH (09:30)
[2017-05-30] MEDS: TRIGLIDE PO SCH (09:30)
[2017-05-30] MEDS: ASPIRIN EC PO SCH (09:31)
[2017-05-30] MEDS: LOVENOX SUBCUT SCH (09:32)
[2017-05-30 10:14] VITALS: BP 144/62
--- NOTE | 2017-06-03 07:55 | CONS ---
DATE OF SERVICE: 05/27/17 CONSULT FOLLOWUP SUBJECTIVE: 57 year old black female was seen for evaluation of chest pain. The patient's chest pain seems to have subsided. REVIEW OF SYSTEMS: CONSTITUTIONAL: No night sweats. No fatigue, malaise, lethargy. No fever or chills. HEENT: Eyes: No visual changes. No eye pain. No eye discharge. ENT: No runny nose. No epistaxis. No sinus pain. No sore throat. No odynophagia. No ear pain. No congestion. RESPIRATORY: No cough, no congestion. No hemoptysis. CARDIOVASCULAR: No angina symptoms. No CHF symptoms. No atypical chest pain for CAD. No palpitations. No shortness of breath. GASTROINTESTINAL: No abdominal pain. No nausea or vomiting. No diarrhea or constipation. No hematemesis. No hematochezia. GENITOURINARY: No urgency. No frequency. No dysuria. No hematuria. No obstructive symptoms. No discharge. No pain. No significant abnormal bleeding. MUSCULOSKELETAL: No musculoskeletal pain. No joint swelling. No arthritis. NEUROLOGICAL: No headache. No neck pain. No syncope. No seizures. No dizziness. PSYCHIATRIC: Not anxious. No depression. No suicidal thoughts. No homicidal thoughts. SKIN: No rash. No lesions. No wounds. ENDOCRINE: No unexplained weight loss. No weight gain. HEMATOLOGIC/LYMPHATIC: No anemia. No purpura. No petechiae. No prolonged or excessive bleeding. No palpable lymph nodes. PHYSICAL EXAMINATION: GENERAL: The patient is oriented to time, place and person. VITAL SIGNS: Temperature 98, pulse 75, respiratory rate 18, blood pressure 126/ 96 HEENT: Head normocephalic, atraumatic. Eyes: Extraocular muscles are intact. Pupils are equal, round and reactive to light and accommodation. Ears: No lesions. Nose appeared normal. Throat: No exudate or erythema. NECK: Supple. No JVP, no carotid bruit. No lymphadenopathy or thyromegaly. LUNGS: Decreased breath sounds but clear to auscultation. Percussion note normal. Chest symmetrical. HEART: S1, S2, no S3. Grade I/ systolic murmur. No cyanosis or clubbing. No ascites. Pulses: Dorsalis pedis and posterior tibial pulses +2 bilaterally. ABDOMEN: Soft. Nontender. Bowel sounds active. No CVA tenderness. No mass felt. EXTREMITIES: No edema. Full range of motion of all extremities, equal. NEUROLOGIC: No focal deficit. Cranial nerves II through XII are grossly intact. No headache, no double vision or headache. SKIN: Not dry. Intact. Turgor - normal. LYMPHATIC: No palpable lymph nodes/no lymphedema. MUSCULOSKELETAL: Normal joints with no swelling. Muscle tone is normal. ASSESSMENT: 1. Chest pain seems to have subsided 2. BMI of 33 with sedentary lifestyle 3. Dyslipidemia 4. Hypertension 5. Diabetes mellitus RECOMMENDATIONS: 1. Echo showed normal LV contractility with LVH, mildly enlarged LA cavity 2. Stress echo negative for ischemia. The patient had METS of 4.6 and reached the heart rate of 164 per minute target was 148 per minute. There was no chest pain, no ST-T wave changes, no arrhythmia. The blood pressure systolic went up to 220. 3. Will increase the Avapro to 320 at night time 4. Continue Clonidine and Zebeta 10mg at before 5. The patient was explained about these findings. 6. DASH diet discuss, advised to lose weight. BMI ideal 23 plus or minus 2. 7. Weight loss diet, ADA discussed 8. The patient also has Dyslipidemia, will ad Pravachol to Fenofibrate 9. Side effects of Pravachol discussed 10. The goal of Non-HDL would be 100, LDL would be 70-80. CONDITION: Stable The case was discussed with attending. MARILEE
--- NOTE | 2017-06-03 07:56 | CONS ---
05/26/17: Level 5 Consultation 05/27/17: Followup Extensive MTDD
--- NOTE | 2017-06-03 08:04 | CONS ---
The patient was seen 05/28/17 also so she was seen 05/26/17, 05/27/17 and a total a 3 times. I may end up seeing her one more time. MARILEE
--- NOTE | 2017-06-11 13:07 | HP ---
DATE OF SERVICE: 05/26/17 CHIEF COMPLAINT: Chest pain and elevated blood pressure. HISTORY OF PRESENT ILLNESS: This is a 57 year old female who comes to the [facility] who has been having issues with blood pressure and came to the emergency room early in the morning today because the patient was having left sided chest pain radiating to the left arm and shoulders, pain down the arms and tingling. Temperature was 99.7, blood pressure was 215/135. At that time, the patient was admitted to the hospital with hypertensive urgency by Dr. Metcalf. No EKG changes and called for a cardiology consultation for the evaluation. REVIEW OF SYSTEMS: CONSTITUTIONAL: No fever, no chills. HEENT: Normal. ENDOCRINE: No weight gain; no weight loss. CVS: Chest pain. No PND, no orthopnea. No shortness of breath. No PND, no orthopnea. RESPIRATORY: No cough, no congestion. No hemoptysis. GI: No nausea, no vomiting. No abdominal pain. No melena. : No hematuria. No polyuria. MUSCULOSKELETAL: No joint swelling. PSYCHIATRIC: Not anxious. No depression. No suicidal thoughts. No homicidal thoughts. SKIN: Intact, no open lesions. PAST MEDICAL HISTORY: Diabetes mellitus type II Hypertension Osteoarthritis Dyslipidemia Anxiety PAST SURGICAL HISTORY: None. PERSONAL HISTORY: Does not smoke. Occasional alcohol use. Lives at home with family. FAMILY HISTORY: None. MEDICATIONS: Albuterol Sulfate 2.5 mg/3 ml nebulization Flonase one spray to each nostril daily ProAir HFA 8.5 gram, one to two puff IH every 4-6 hours prn Metformin 500 mg twice daily Fenofibrate 54 mg daily Bisoprolol Fumarate 10 mg daily Clonidine 0.2 mg twice daily Potassium Chloride 20 mEq twice daily Avapro 150 mg at bedtime Pinon 3 Fish oil 1,000 mg daily Aspirin 81 mg daily Ranitidine 150 mg daily ALLERGIES: No known drug allergies. PHYSICAL EXAMINATION: GENERAL: Right now the patient is comfortably sleeping in the bed. V/S: Blood pressure is 101/58, respiratory rate 16, heart rate 75, temperature 97.7, saturation 100%. HEENT: Atraumatic, normocephalic. No scleral icterus. Mucosa dry. NECK: Supple. No JVD, no bruit. No lymphadenopathy. No thyromegaly. HEART: S1, S2 normal. No murmur. No cyanosis or clubbing. No ascites. LUNGS: Clear to auscultation. No rales or rhonchi. ABDOMEN: Soft, nontender. Bowel sounds are active. No CVA tenderness. No rigidity or guarding. EXTREMITIES: No pedal edema. No cyanosis or clubbing MUSCULOSKELETAL: Normal joints, no swelling. NEUROLOGIC: Normal. SKIN: Intact; no open lesions. LYMPHATIC: No lymph nodes palpable. LABS: White count 8.848, hemoglobin 12.9, hematocrit 38.5, platelet count 361, sodium 139, potassium 3.2, chloride 104, bicarb 22, BUN 12, creatinine 0.91, glucose 134. A1C 6.1. ASSESSMENT: 1. CHEST PAIN, RULE OUT ACUTE CORONARY SYNDROME 2. HYPERTENSION, UNCONTROLLED AND HYPERTENSIVE URGENCY 3. RULE OUT DIABETES 4. OSTEOARTHRITIS 5. ANXIETY 6. DYSLIPIDEMIA PLAN: 1. Admit the patient to SCU for accelerated hypertension 2. CBC, CMP, today and daily. 3. Cardiac enzymes and Troponins. 4. Cardiology consultation for the evaluation of the chest pain. 5. Increase the Clonidine to 0.2 three times a day. 6. Lovenox for the DVT prophylaxis. 7. Continue the rest of the home medications. TIME SPENT: MORE THAN 75 minutes MTDD
--- NOTE | 2017-06-11 13:17 | PN ---
DATE OF SERVICE: 05/27/17 SUBJECTIVE: The patient was admitted with chest pain and uncontrolled blood pressure. Blood pressure has been fluctuating. The patient did have a stress echo and discussed with Dr. Diaz. Her blood pressure went up to 200/110. Heart rate went up to [address] T wave changes. The patient is feeling somewhat better. REVIEW OF SYSTEMS: CONSTITUTIONAL: No fever, no chills. HEENT: Normal. ENDOCRINE: No weight gain, no weight loss. CVS: No angina symptoms. No CHF symptoms. No palpitations. No atypical chest pain for CAD. No shortness of breath. No PND, no orthopnea. RESPIRATORY: No cough, no hemoptysis. GI: No nausea, no vomiting. No abdominal pain. : No hematuria. No polyuria. MUSCULOSKELETAL: No joint swelling. PSYCHIATRIC: Not anxious. No depression. No suicidal thoughts. No homicidal thoughts. SKIN: Intact. No rash. PHYSICAL EXAMINATION: V/S: Blood pressure 146/93, respiratory rate 18, heart rate 77, temperature 97.8. HEENT: Normocephalic, atraumatic. Mucosa dry. NECK: Supple. No JVD, no carotid bruit. No lymphadenopathy. LUNGS: Clear to auscultation. No rales or rhonchi. HEART: S1, S2 normal. No S3. No murmur, gallop or regurgitation. ABDOMEN: Soft, nontender. Bowel sounds active. No rigidity. No rebound or guarding. No CVA tenderness. EXTREMITIES: No pedal edema. No clubbing or cyanosis MUSCULOSKELETAL: No joint swelling. NEUROLOGIC: Awake, alert, oriented times three. No focal deficit. LYMPHATIC: No lymph nodes palpable. SKIN: Intact. LABS: White count 6.25, hemoglobin 11.7, hematocrit 35.6, platelet count 331, sodium 139, potassium 3.8, chloride 105, bicarb 23, BUN 19, creatinine 0.86, glucose 130. Hemoglobin A1C 6.1. Total cholesterol 241, triglycerides 158. ASSESSMENT: 1. ACCELERATED HYPERTENSION 2. CHEST PAIN, NONCARDIAC 3. DYSLIPIDEMIA NOT CONTROLLED 4. DIABETES, A1C 6.1 5. ANXIETY DISORDER PLAN: 1. Start the patient on Librium 10 mg p.o. twice daily. 2. Continue Bisoprolol 10 mg p.o. daily. 3. Clonidine 0.2 mg twice daily. 4. Hydralazine 50 mg p.o. twice daily. 5. Out of bed to chair. 6. Activity as tolerated. TIME SPENT: More than 35 minutes MTDD
--- NOTE | 2017-06-12 15:09 | PN ---
DATE OF SERVICE: 05/28/17 SUBJECTIVE: Blood pressure is still up and down after all the changes. The patient goes down to the 134/78 and comes back to 172/20's. REVIEW OF SYSTEMS: CONSTITUTIONAL: No fever, no chills. HEENT: Normal. ENDOCRINE: No weight gain, no weight loss. CVS: No angina symptoms. No CHF symptoms. No palpitations. No atypical chest pain for CAD. No shortness of breath. No PND, no orthopnea. RESPIRATORY: No cough, no hemoptysis. GI: No nausea, no vomiting. No abdominal pain. : No hematuria. No polyuria. MUSCULOSKELETAL: No joint swelling. PSYCHIATRIC: Not anxious. No depression. No suicidal thoughts. No homicidal thoughts. SKIN: Intact. No rash. PHYSICAL EXAMINATION: HEENT: Normocephalic, atraumatic. Mucosa . NECK: Supple. No JVD, no carotid bruit. No lymphadenopathy. LUNGS: Clear to auscultation. No rales or rhonchi. HEART: S1, S2 normal. No S3. No murmur, gallop or regurgitation. ABDOMEN: Soft, nontender. Bowel sounds active. No rigidity. No rebound or guarding. No CVA tenderness. EXTREMITIES: No pedal edema. No clubbing or cyanosis MUSCULOSKELETAL: No joint swelling. NEUROLOGIC: Awake, alert, oriented times three. No focal deficit. LYMPHATIC: No lymph nodes palpable. SKIN: Intact. LABS: WBC 6.25, hgb 11.7, hct 35.6, plt count 331, sodium 139, potassium 3.8, chloride 105, bicarb 23, BUN 19, creatinine 0.86 and glucose 130. ASSESSMENT: 1. Accelerated hypertension which is controlled now. 2. Chest pain, non cardiac 3. Diabetes, A1c 6.1 TIME SPENT: More than 35 minutes MTDD
--- NOTE | 2017-06-12 15:15 | PN ---
DATE OF SERVICE: 05/29/17 SUBJECTIVE: The patient's blood pressure is still labile going up as high as 172/92 to as low as 116/66. No headache, no chest pain nonexertional. No flushing or no sweating episode. REVIEW OF SYSTEMS: CONSTITUTIONAL: No fever, no chills. HEENT: Normal. ENDOCRINE: No weight gain, no weight loss. CVS: No angina symptoms. No CHF symptoms. No palpitations. No atypical chest pain for CAD. No shortness of breath. No PND, no orthopnea. RESPIRATORY: No cough, no hemoptysis. GI: No nausea, no vomiting. No abdominal pain. : No hematuria. No polyuria. MUSCULOSKELETAL: No joint swelling. PSYCHIATRIC: Not anxious. No depression. No suicidal thoughts. No homicidal thoughts. SKIN: Intact. No rash. PHYSICAL EXAMINATION: V/S: Blood pressure 168/72, respiratory rate 18, heart rate 80, temperature 98.5 with saturation normal. HEENT: Normocephalic, atraumatic. NECK: Supple. No JVD, no carotid bruit. No lymphadenopathy. LUNGS: Clear to auscultation. No rales or rhonchi. HEART: S1, S2 normal. No S3. No murmur, gallop or regurgitation. ABDOMEN: Soft, nontender. Bowel sounds active. No rigidity. No rebound or guarding. No CVA tenderness. EXTREMITIES: No pedal edema. No clubbing or cyanosis MUSCULOSKELETAL: No joint swelling. NEUROLOGIC: Awake, alert, oriented times three. No focal deficit. LYMPHATIC: No lymph nodes palpable. SKIN: Intact. LABS: WBC 6.91, hgb 11.1, hct 35.7, plt count 350, sodium 139, potassium 3.9, chloride 106, bicarb 25, BUN 20, creatinine 0.84, glucose 119. ASSESSMENT: 1. Accelerated hypertension 2. Status post chest pain noncardiac 3. Diabetes, A1c 6.1 4. Dyslipidemia 5. Anxiety disorder 6. Hypokalemia which has been treated. PLAN: 1. Will increase Hydralazine to 100mg three times a day 2. Continue Coreg 0.2mg twice a day 3. Out of bed to chair activity as tolerated 4. Serum Catecholamine levels 5. CT of abdomen and pelvis for the adrenal mass. TIME SPENT: More than 35 minutes MTDD
--- NOTE | 2017-07-21 10:33 | DS ---
DATE OF SERVICE: 05/30/17 FINAL DIAGNOSIS: 1. HYPERTENSIVE URGENCY 2. CHEST PAIN, NONCARDIAC 3. DIABETES 4. DYSLIPIDEMIA 5. OBESITY 6. ANXIETY DISORDER 7. HYPOKALEMIA 8. CHOLECYSTECTOMY PLAN: 1. Discharge the patient home. 2. Follow up in the [facility] within 5 to 7 days. 3. Medications: Avapro 300 mg daily at bedtime. Hydralazine 100 mg three times a day. Pravachol 40 mg p.o. daily Librium 25 mg twice a day as needed 4. Medication change the timing of Zebeta 10 mg to noon daily. 5. Check blood pressure daily. 6. Continue the rest of the home medications of Albuterol, Aspirin, Bisoprolol 10 mg p.o. daily, Clonidine 0.2 mg p.o. three times daily, Fenofibrate, Metformin 500 mg twice daily, Pravachol. 7. Diet: 1800 ADA diet. 8. Activity: As much as tolerated. DISEASE SPECIFIC EDUCATION: Uncontrolled hypertension, risk of intracranial bleed and stroke, coronary artery disease were discussed. HOSPITAL COURSE: Cammie Linda, who is a 57 year old female with a history of diabetes, hypertension came to the emergency room with a headache and chest pain. She was found to have a blood pressure of 215/135. CT of the head was negative for the stroke. She was admitted to the hospital because of that. Cardiology consultation was obtained. Dr. Diaz did a stress echocardiogram. Ejection fraction was 57%, enlargement of the atrium. The stress echocardiogram was negative for any ischemic changes. Blood pressure was very hard to deal with the patient. A lot of medications were being switched around during the hospital stay and a lot of new medications being added for the stay. Hydralazine 50 mg three times daily was started. Avapro continued at 50 mg at bedtime and [place] was given for the anxiety, which did help her. Bystolic continued and Clonidine 0.2 mg three times a day. With this given regimen the patient's blood pressure was finally at 140's over 80 to 90. No headache, no more chest pain. She was up and about walking and did not have any problems. At that time, the patient is being discharged to home. Again explained about the medication side effects and the need for controlling the blood pressure very well, otherwise she will have a stroke or heart attack. The patient verbalized understanding. TIME SPENT: MORE THAN 65 MINUTES TODAY PRESTOND
== END 2017-05-30 10:36 | disposition home or self-care (01) | DRG 305 ==
LOC: ED 21:58 → SCU 05-26 02:51
PROVIDERS: ADMIT Emergency Medicine; ATTEND Emergency Medicine
DX: I16.0 Hypertensive urgency (principal); R07.89 Other chest pain; M79.602 Pain in left arm; R20.2 Paresthesia of skin; E11.9 Type 2 diabetes mellitus without complications; I51.7 Cardiomegaly; I10 Essential (primary) hypertension; E78.5 Hyperlipidemia, unspecified; E66.9 Obesity, unspecified; F41.9 Anxiety disorder, unspecified; E87.6 Hypokalemia; R51 Headache; K21.9 Gastro-esophageal reflux disease without esophagitis; Z68.33 Body mass index [BMI] 33.0-33.9, adult; Z72.3 Lack of physical exercise; Z79.84 Long term (current) use of oral hypoglycemic drugs; Z79.899 Other long term (current) drug therapy; Z90.49 Acquired absence of other specified parts of digestive tract
CPT/HCPCS: 36415; 80053; 80061; 81001; 82550; 82553; 82962; 83036; 84439; 84443; 84484; 85025; 93005; 93010; 97802; 99223; 99232; 99233; 99239; 99255; 99284

== ENCOUNTER 2017-08-13 13:59 | Outpatient (CLI) | END 2017-08-13 14:00 | disposition home or self-care (01) | LOC: RAD 13:59 | PROVIDERS: ATTEND Emergency Medicine | DX: Z12.31 Encounter for screening mammogram for malignant neoplasm of breast (principal) | CPT/HCPCS: 77067 ==

== ENCOUNTER 2017-09-19 09:16 | Outpatient (CLI) | END 2017-09-19 09:17 | disposition home or self-care (01) | LOC: RHC-LAB 09:16 | PROVIDERS: ATTEND Emergency Medicine | DX: E11.9 Type 2 diabetes mellitus without complications (principal); E78.5 Hyperlipidemia, unspecified; I10 Essential (primary) hypertension; E66.9 Obesity, unspecified | CPT/HCPCS: 36415; 80053; 80061; 83036; 84443; 85025 ==

== ENCOUNTER 2017-09-30 16:33 | Outpatient (CLI) | END 2017-09-30 16:34 | disposition home or self-care (01) | LOC: RHC-LAB 16:33 | PROVIDERS: ATTEND Emergency Medicine | DX: D50.0 Iron deficiency anemia secondary to blood loss (chronic) (principal) | CPT/HCPCS: 36415; 82607; 82728; 82746; 83540; 83550; 84466; 85025; 85045 ==

== ENCOUNTER 2018-02-02 10:24 | Emergency (ER) | payer OTHER ==
[2018-02-02 10:27] VITALS: TEMP 98.1; BMI 32.7
[2018-02-02] MEDS: SODIUM CHLORIDE 1,000 ML IV STA (11:00)
[2018-02-02] MEDS: ZOFRAN 4 MG/2 ML IVP STA (11:02)
--- NOTE | 2018-02-02 11:37 | ED.PDOC ---
General ED Provider: Dr. ALONA LOCKHART Chief Complaint: Nausea/Vomiting Stated Complaint: Started Friday; OK Friday then N/V/D on Friday and today. Time Seen by Physician: 11:00 Mode of Arrival: Wheelchair Information Source: Patient Exam Limitations: No limitations Primary Care Provider: HERMINIA DIAMOND Nursing and Triage Documentation Reviewed and Agree: Yes Does patient meet sepsis criteria?: No System Inflammatory Response Syndrome: Not Applicable Sepsis Protocol: For patient's 13 years and over: Temp is 96.8 and below OR 101 and greater Pulse >90 BPM Resp >20/minute Acutely Altered Mental Status Are patient's symptoms suggestive of a new infection, such as: -Pneumonia -Skin, Soft Tissue -Endocarditis -UTI -Bone, Joint Infection -Implantable Device -Acute Abdominal Infection -Wound Infection -Meningitis -Blood Stream Catheter Infection -Unknown GI Complaint Exam - Vomiting/Diarrhea Complaint/Exam Onset/Duration: Vomiting started Friday; was beter Friday then again NV and D Fri/Mon Episodes of Vomiting over last 24 Hours: 20 Episodes of Diarrhea Over Last 24 Hours: 3 Initial Severity: Mild Current Severity: Severe Character of Vomiting: Reports: Retching Character of Diarrhea: Reports: Watery Aggravating: Reports: None Alleviating: Reports: None Associated Signs and Symptoms: Reports: Light-headedness, Cramping Review of Systems - Review Of Systems Constitutional: Reports: Malaise, Weakness Eyes: Reports: No symptoms Ears, Nose, Mouth, Throat: Reports: No symptoms Respiratory: Reports: No symptoms Cardiac: Reports: No symptoms GI: Reports: Abdominal pain (Cramping), Diarrhea, Nausea, Poor appetite, Vomiting : Reports: No symptoms (Last urine this AM - ess WNL) Skin: Reports: No symptoms All Other Systems: Reviewed and Negative Past Medical History - Past Medical History Previously Healthy: Yes Endocrine: Reports: DM 2 Cardiovascular: Reports: Hypertension Respiratory: Reports: None Hematological: Reports: None Gastrointestinal: Reports: None Genitourinary: Reports: None Neuro/Psych: Reports: None Musculoskeletal: Reports: None Cancer: Reports: None Last Menstrual Period: none - Surgical History General Surgical History: Reports: None - Family History Family History: Reports: None - Social History Smoking Status: Never smoker Hx Substance Use: No Alcohol Screening: Occasionally Physical Exam - Physical Exam Appearance: Ill-appearing Ill-appearing: Moderate Pain Distress: Mild Eyes: VEENA, EOMI ENT: Nose normal, Oropharynx normal Neck: Supple Respiratory: Airway patent, Breath sounds clear Cardiovascular: RRR, Pulses normal GI/: Soft, Bowel sounds normal Musculoskeletal: Normal strength, ROM intact Skin: Warm, Dry, Normal color Neurological: Sensation intact Psychiatric: Affect appropriate, Mood appropriate Interpretation - Radiology Interpretation Radiology Interpretation By: Radiologist Exam Interpreted: Portable CXR - EKG Interpretation Time of EKG #1: 18:13 Rate: Normal Rhythm: Sinus Ectopy: None [place]: NL ST Segment: Normal Interpretation: No acute changes Re-Evaluation - Re-Evaluation Time of Re-Evaluation: 14:20 Status: Improved Vital Signs Stable: Yes Appearance: NAD (No longer vomiting) Lungs: Clear Skin: Warm and Dry Neuro: Alert and Oriented X3 - Re-Evaluation Time of Re-Evaluation: 18:05 Status: Improved (Wants to go home; discussed low potassium and reason for EKG) Vital Signs Stable: Yes Appearance: NAD Skin: Warm and Dry Neuro: Alert and Oriented X3 Critical Care Note - Critical Care Note Total Time (mins): 45 Comments: Severe n/v/d for 4 days; hypokalemia, IV rehydration with IV K over 4 hours. Discusion with patient re loss of K thru emesis and diarrhea and inability of taking her usual potassium supplement because of vomiting Course - Course Hematology/Chemistry: 02/02/18 10:45 02/02/18 15:05 Orders, Labs, Meds: Lab Review 02/02/18 02/02/18 02/02/18 10:45 10:45 15:05 WBC 12.68 H RBC 5.52 H Hgb 14.0 Hct 42.5 MCV 77.0 L MCH 25.4 L MCHC 32.9 RDW Coeff of Anh 13.9 Plt Count 386 Immature Gran % (Auto) 0.4 Neut % (Auto) 79.0 Lymph % (Auto) 12.5 [place] % (Auto) 7.9 Eos % (Auto) 0.0 Baso % (Auto) 0.2 Immature Gran # (Auto) 0.1 Neut # (Auto) 10.0 H Lymph # (Auto) 1.6 [place] # (Auto) 1.0 Eos # (Auto) 0.0 Baso # (Auto) 0.0 Sodium 142.0 141.5 Potassium 2.75 L* 2.92 L Chloride 96.6 L 101.7 Carbon Dioxide 32.7 H 30.7 H Anion Gap 15.45 12.02 BUN 15.9 Creatinine 0.65 Estimated GFR (MDRD) 115.00 BUN/Creatinine Ratio 24.46 Glucose 160.1 H Calcium 10.57 H Total Bilirubin 0.51 AST 32.6 ALT 21.8 Alkaline Phosphatase 78.3 Total Protein 9.42 H Albumin 5.24 H Globulin 4.18 Albumin/Globulin Ratio 1.25 Orders Category Date Time Status EKG-(ED ONLY) Stat CARDIO 02/02/18 18:08 Completed CBC W/ AUTO DIFF Stat LAB 02/02/18 10:45 Completed COMPREHENSIVE METABOLIC PANEL Stat LAB 02/02/18 10:45 Completed ELECTROLYTES Stat LAB 02/02/18 15:05 Completed Clonidine 0.3 mg [Catapres-Tts 3] MEDS 02/02/18 12:04 Discontinued 1 patch TD ONCE STA Clonidine HCl [Catapres] MEDS 02/02/18 15:48 Discontinued 0.2 mg PO ONCE STA Ondansetron HCl/Pf [Zofran 4 mg/2 ml] MEDS 02/02/18 10:50 Discontinued 4 mg IVP ONCE STA Potassium Chloride in 0.9%NaCl [Sodium Chloride 0.9%- MEDS 02/02/18 11:44 Discontinued KCl 20 Meq] 1,000 ml IV 250 mls/hr Sodium Chloride 0.9% [Sodium Chloride] 1,000 ml MEDS 02/02/18 10:49 Discontinued IV BOLUS Medications Discontinued Medications Generic Name Dose Route Start Last Admin Trade Name Freq PRN Reason Stop Dose Admin Clonidine 0.2 mg 02/02/18 15:48 02/02/18 15:56 Catapres PO 02/02/18 15:49 0.2 mg ONCE STA Administration Clonidine HCl 1 patch 02/02/18 12:04 02/02/18 12:06 Catapres-Tts 3 TD 02/02/18 12:05 1 patch ONCE STA Administration Sodium Chloride 1,000 mls @ 1,000 mls/hr 02/02/18 10:49 02/02/18 11:00 Sodium Chloride IV 02/02/18 11:48 1,000 mls/hr BOLUS STA Administration Potassium Chloride/Sodium Chloride 1,000 mls @ 250 mls/hr 02/02/18 11:44 12/13 12:03 Sodium Chloride 0.9%-Kcl 20 Meq IV 02/02/18 15:43 250 mls/hr .Q4H STA Administration Ondansetron HCl 4 mg 02/02/18 10:50 02/02/18 11:02 Zofran 4 Mg/2 Ml IVP 02/02/18 10:51 4 mg ONCE STA Administration Vital Signs: Temp Pulse Resp BP Pulse Ox 02/02/18 18:14 88 16 160/93 H 02/02/18 17:12 93 H 23 175/95 H 97 02/02/18 10:24 98.1 F 108 H 20 193/108 H 97 Departure - Departure Time of Disposition: 18:20 Disposition: HOME SELF-CARE Discharge Problem: Gastroenteritis Instructions: Dehydration (ED), Hypokalemia (ED), Gastroenteritis (ED) Condition: Stable Pt referred to PMD for follow-up: Yes (Follow up with primary care provider) IPMP verified?: No (Not indicated) Additional Instructions: Use zofran if needed; small amounts of clear liquids only next 12 hours. May advance diet slowly thereafter. Call primary care provider tomorrow and let them know how you are doing. Resume usual medications. Prescriptions: Ondansetron [Zofran Odt] 4 mg PO Q6HR PRN #10 tab.rapdis PRN Reason: Nausea / Vomiting Allergies/Adverse Reactions: Allergies No Known Allergies Allergy (Verified 02/02/18 10:27) Home Medications: Ambulatory Orders Aspirin [Aspirin EC] 81 mg PO DAILY 05/26/17 Ondansetron [Zofran Odt] 4 mg PO Q6HR PRN #10 tab.rapdis 02/02/18 Disposition Discussed With: Patient (and family)
[2018-02-02] MEDS: SODIUM CHLORIDE 0.9%-KCL 20 MEQ 1,000 ML IV STA (12:03)
[2018-02-02] MEDS: CATAPRES-TTS 3 TD STA (12:06)
[2018-02-02] MEDS: CATAPRES PO STA (15:56)
[2018-02-02 18:15] VITALS: BP 160/93
== END 2018-02-02 18:30 | disposition home or self-care (01) ==
LOC: ED 10:24
DX: R11.2 Nausea with vomiting, unspecified (principal); R19.7 Diarrhea, unspecified; R42 Dizziness and giddiness; R25.2 Cramp and spasm; R53.81 Other malaise; R53.1 Weakness; R10.9 Unspecified abdominal pain; K52.9 Noninfective gastroenteritis and colitis, unspecified
CPT/HCPCS: 36415; 80051; 80053; 85025; 93005; 93010; 96361; 96374; 99283

== ENCOUNTER 2018-02-20 07:32 | Outpatient (CLI) | payer OTHER | END 2018-02-20 07:33 | disposition home or self-care (01) | LOC: LAB 07:32 | PROVIDERS: ATTEND Nurse Practitioner Family | DX: E11.9 Type 2 diabetes mellitus without complications (principal); I10 Essential (primary) hypertension; E78.5 Hyperlipidemia, unspecified | CPT/HCPCS: 36415; 80053; 80061; 82306; 83036; 85025 ==

== ENCOUNTER 2018-05-21 15:56 | Outpatient (CLI) | payer OTHER | END 2018-05-21 15:57 | disposition home or self-care (01) | LOC: RHC-LAB 15:56 | PROVIDERS: ATTEND Nurse Practitioner Family | DX: E11.9 Type 2 diabetes mellitus without complications (principal); I10 Essential (primary) hypertension; E78.5 Hyperlipidemia, unspecified | CPT/HCPCS: 36415; 80053; 80061; 83036; 85025 ==

== ENCOUNTER 2018-08-18 08:33 | Outpatient (CLI) | END 2018-08-18 08:34 | disposition home or self-care (01) | LOC: RHC-LAB 08:33 | PROVIDERS: ATTEND Nurse Practitioner Family | DX: E11.9 Type 2 diabetes mellitus without complications (principal); I10 Essential (primary) hypertension; E78.5 Hyperlipidemia, unspecified; E55.9 Vitamin D deficiency, unspecified; D64.9 Anemia, unspecified | CPT/HCPCS: 36415; 80053; 80061; 82306; 83036; 85025 ==

== ENCOUNTER 2018-09-02 10:09 | Outpatient (CLI) ==
--- NOTE | 2018-09-04 10:42 | MAMMO ---
EXAM: Bilateral digital screening mammogram (2-D and 3-D) History: Screening Comparison: Bilateral mammogram 08/13/2017 Findings: MLO and CC views of bilateral breasts demonstrate scattered fibroglandular breast parenchy ma. CAD was reviewed by the radiologist. Tomosynthesis was performed. There are no dominant masses , no suspicious microcalcifications and no architectural distortions. Impression: Stable negative mammogram. Recommend followup routine screening mammography in 1 year. BIRADS 1, negative
== END 2018-09-02 10:10 | disposition home or self-care (01) ==
LOC: RAD 10:09
PROVIDERS: ATTEND Nurse Practitioner Family
DX: Z12.31 Encounter for screening mammogram for malignant neoplasm of breast (principal)

== ENCOUNTER 2018-12-04 14:08 | Outpatient (CLI) | payer OTHER | END 2018-12-04 14:09 | disposition home or self-care (01) | LOC: LAB 14:08 | PROVIDERS: ATTEND Nurse Practitioner Family | DX: E87.6 Hypokalemia (principal) | CPT/HCPCS: 36415; 84132 ==

== ENCOUNTER 2018-12-25 10:27 | Outpatient (CLI) | payer OTHER | END 2018-12-25 10:28 | disposition home or self-care (01) | LOC: LAB 10:27 | PROVIDERS: ATTEND Nurse Practitioner Family | DX: E87.6 Hypokalemia (principal) | CPT/HCPCS: 36415; 84132 ==